=== PATIENT | female | born 1930 | race Caucasian/White ===

== ENCOUNTER 2016-12-31 19:32 | Inpatient (IN) | payer MEDICARE, OTHER ==
[~2016-12-31] VITALS: Ht 157.5 cm; Wt 66.7 kg
[2016-12-31 20:00] VITALS: BP 140/69
[2016-12-31] MEDS ORDERED: EZET10TA13 PO (21:16)
[2016-12-31] MEDS ORDERED: IPRA0.2S6 NEB (21:16)
[2016-12-31] MEDS ORDERED: ESTR42.53 VG (21:16)
[2016-12-31] MEDS ORDERED: NITR0.4T48 SL (21:16)
[2016-12-31] MEDS ORDERED: VIT1CAPS7 PO (21:16)
[2016-12-31] MEDS ORDERED: ATEN50TA PO (21:16)
[2016-12-31] MEDS ORDERED: MIDO5TAB PO (21:16)
[2016-12-31] MEDS ORDERED: FEBU80TA PO (21:16)
[2016-12-31] MEDS ORDERED: GABA-534 PO (21:16)
[2016-12-31] MEDS ORDERED: ERGO500014 PO (21:16)
[2016-12-31] MEDS ORDERED: ATOR10TA PO (21:16)
[2016-12-31] MEDS ORDERED: ESOM40CA PO (21:16)
[2016-12-31] MEDS ORDERED: OXYC30TA2 PO (21:16)
[2016-12-31] MEDS ORDERED: HYDR-3026 PO (21:16)
[2016-12-31] MEDS ORDERED: LEVO200T9 PO (21:16)
[2016-12-31] MEDS ORDERED: ZALE10CA28 PO (21:16)
[2016-12-31] MEDS ORDERED: DOCU100T2 PO (21:16)
[2016-12-31] MEDS ORDERED: TRAZ-147 PO (21:16)
[2016-12-31] MEDS ORDERED: AMLO5TAB2 PO (21:16)
[2016-12-31] MEDS ORDERED: OXYC-133 PO (21:16)
[2016-12-31] MEDS ORDERED: AZEL137S7 NS (21:16)
[2016-12-31] MEDS ORDERED: CETI10TA14 PO (21:16)
[2016-12-31] MEDS ORDERED: TRIA1CAP6 PO (21:16)
[2016-12-31] MEDS ORDERED: IPRA0.2S48 IH ×2 (21:16)
[2016-12-31] MEDS ORDERED: SULF1TAB48 PO (21:16)
[2016-12-31] MEDS ORDERED: [UNRECOGNIZED DRUG - CODE] PO (21:16)
[2016-12-31] MEDS ORDERED: DIPH1TAB PO (21:16)
[2016-12-31] MEDS ORDERED: GUAI120018 PO (21:16)
[2016-12-31] MEDS ORDERED: ALBU2.5V38 IH (21:16)
[2016-12-31] MEDS ORDERED: IPRATROPIUM BROMIDE 0.5 MG/2.5 ML NEBU NEB PRN (22:00)
[2016-12-31] MEDS ORDERED: Medication Not On Formulary EA (Oxycodone Hcl 30 MG) PO SCH (22:00)
[2016-12-31] MEDS ORDERED: ERGOCALCIFEROL 50,000 UNIT CAPSULE PO SCH (22:00)
[2016-12-31] MEDS ORDERED: ALBUTEROL SULFATE 2.5 MG/3 ML NEBU NEB PRN (22:45)
[2016-12-31] MEDS ORDERED: GABAPENTIN 300 MG CAPSULE ONE (23:00)
[2016-12-31] MEDS: GABAPENTIN 300 MG CAPSULE PO SCH (23:07)
[2017-01-01] MEDS ORDERED: OXYCODONE/APAP 5-325 MG TABLET PO PRN (05:00)
[2017-01-01 07:29] LABS: BASOPHILS % (AUTO) 0.6 % (0.0-2.0); EOSINOPHILS # (AUTO) 0.4 K/uL (0.0-0.7); EOSINOPHILS % (AUTO) 6.3 % (0.0-7.0); HEMATOCRIT 34.1 % (37-47); HEMOGLOBIN 11.1 G/DL (12.0-16.0); LYMPHOCYTES # (AUTO) 1.4 K/UL (0.8-4.8); LYMPHOCYTES % (AUTO) 20.4 % (20.5-51.5); MEAN CORPUSCULAR HGB CONC 33 g/dL (32.0-37.0); MONOCYTES # (AUTO) 0.4 K/UL (0.1-1.30); MONOCYTES % (AUTO) 6.3 % (0.0-11.0); NEUTROPHILS # (AUTO) 4.8 K/UL (1.8-8.9); NEUTROPHILS % (AUTO) 66.4 % (38.5-71.5); PLATELET COUNT (AUTO) 724 K/UL (150-450); RED BLOOD CELL COUNT(AUTO) 4.43 MIL/UL (4.2-5.4)
[2017-01-01] MEDS ORDERED: ALBUTEROL SULFATE 2.5 MG/ 0.5 ML NEBU NEB PRN (08:00)
[2017-01-01 08:05] LABS: THYROID STIMULATING HORMONE 0.151 mIU/mL (0.358-3.740)
[2017-01-01 08:24] LABS: ALKALINE PHOSPHATASE 72 U/L (50-136); ASPARTATE AMINOTRANSFERASE 18 U/L (15-37); BILIRUBIN,TOTAL 0.2 mg/dL (0.2-1.0); CARBON DIOXIDE 33 mmol/L (21-32); CHLORIDE 106 mmol/L (98-107); CHOLESTEROL 129 mg/dL (<200); CREATININE 0.9 mg/dL (0.6-1.3); GLUCOSE 95 mg/dL (74-106); HDL CHOLESTEROL 44 mg/dL (40-60); MAGNESIUM 1.7 mg/dL (1.8-2.4); PHOSPHOROUS 3.3 mg/dL (2.5-4.9); POTASSIUM 3.5 mmol/L (3.5-5.1); TOTAL PROTEIN, SERUM 6.9 g/dL (6.4-8.2); TRIGLYCERIDES 153 MG/DL (30-150); UREA NITROGEN, BLOOD 11 mg/dL (7-18)
[2017-01-01 08:59] LABS: ALANINE AMINOTRANSFERASE 14 U/L (14-59)
[2017-01-01] MEDS ORDERED: OXYCODONE HCL 10 MG TAB.SR.12H PO SCH (09:00)
[2017-01-01] MEDS ORDERED: VIT E PO SCH (09:00)
[2017-01-01] MEDS ORDERED: Medication Not On Formulary EA (Docusate Sodium 100 MG) PO SCH (09:00)
[2017-01-01] MEDS ORDERED: LUTEIN PO SCH (09:00)
[2017-01-01] MEDS ORDERED: [UNRECOGNIZED DRUG - OTHER] PO SCH (09:00)
[2017-01-01] MEDS ORDERED: OMEGA PO SCH (09:00)
[2017-01-01] MEDS ORDERED: SULFAMETH/TRIMETH 800/160 MG TABLET PO SCH (09:00)
[2017-01-01] MEDS ORDERED: VIT C PO SCH (09:00)
[2017-01-01] MEDS: BETA CAROTENE/VIT C & E/MIN TABLET PO SCH ×2 (09:01→17:40)
[2017-01-01] MEDS: LEVOTHYROXINE SODIUM 200 MCG TABLET PO SCH (09:01)
[2017-01-01] MEDS: GABAPENTIN 300 MG CAPSULE PO SCH ×3 (09:02→17:38)
[2017-01-01] MEDS: DOCUSATE SODIUM 100 MG CAPSULE PO SCH (09:02)
[2017-01-01] MEDS: DOXYCYCLINE HYCLATE 100 MG TABLET PO SCH ×2 (09:02→21:04)
[2017-01-01] MEDS: CETIRIZINE HCL 10 MG TABLET PO SCH (09:02)
[2017-01-01] MEDS: AMLODIPINE 5 MG TABLET PO SCH (09:06)
[2017-01-01] MEDS: ATENOLOL 50 MG TABLET PO SCH (09:06)
[2017-01-01 09:30] VITALS: BP 160/73
[2017-01-01] MEDS ORDERED: MAGNESIUM OXIDE 400 MG TABLET PO ONE (12:00)
[2017-01-01] MEDS: HYDROMORPHONE HCL 2 MG TABLET PO PRN (17:39)
[2017-01-01] MEDS: TRAZODONE 100 MG TABLET PO SCH (21:04)
[2017-01-01] MEDS: MUPIROCIN 2% OINT 22 GM TUBE TP SCH (21:04)
[2017-01-01] MEDS: SONATA 10 MG PO SCH (21:04)
[2017-01-01] MEDS: EZETIMIBE 10 MG TABLET PO SCH (21:05)
[2017-01-01] MEDS: OXYCODONE HCL 10 MG TAB.SR.12H PO SCH (21:05)
[2017-01-01] MEDS: ATORVASTATIN 10 MG TABLET PO SCH (21:05)
[2017-01-01 22:00] VITALS: BP 117/72
[2017-01-02] MEDS: HYDROMORPHONE HCL 2 MG TABLET PO PRN ×2 (03:43→11:40)
[2017-01-02] MEDS ORDERED: DIPHENOXYLATE HCL/ATROP SULF TABLET PO PRN (06:45)
[2017-01-02] MEDS: LEVOTHYROXINE SODIUM 200 MCG TABLET PO SCH (06:46)
[2017-01-02] MEDS: OXYCODONE HCL 10 MG TAB.SR.12H PO SCH ×3 (06:46→21:59)
[2017-01-02] MEDS ORDERED: DIPHENOXYLATE HCL/ATROP SULF TABLET ONE (06:52)
[2017-01-02 07:50] VITALS: BP 154/70
[2017-01-02] MEDS: AMLODIPINE 5 MG TABLET PO SCH (08:49)
[2017-01-02] MEDS: GABAPENTIN 300 MG CAPSULE PO SCH ×3 (08:49→17:06)
[2017-01-02] MEDS: CETIRIZINE HCL 10 MG TABLET PO SCH (08:49)
[2017-01-02] MEDS: DOXYCYCLINE HYCLATE 100 MG TABLET PO SCH ×2 (08:49→22:00)
[2017-01-02] MEDS: BETA CAROTENE/VIT C & E/MIN TABLET PO SCH ×2 (08:50→17:06)
[2017-01-02] MEDS: DOCUSATE SODIUM 100 MG CAPSULE PO SCH (08:50)
[2017-01-02] MEDS: MUPIROCIN 2% OINT 22 GM TUBE TP SCH ×2 (08:50→21:59)
[2017-01-02] MEDS: ATENOLOL 50 MG TABLET PO SCH (08:50)
[2017-01-02 20:21] VITALS: BP 158/69
[2017-01-02] MEDS: SONATA 10 MG PO SCH (21:00)
[2017-01-02] MEDS: EZETIMIBE 10 MG TABLET PO SCH (21:59)
[2017-01-02] MEDS: ATORVASTATIN 10 MG TABLET PO SCH (21:59)
[2017-01-02] MEDS: TRAZODONE 100 MG TABLET PO SCH (22:00)
[2017-01-03] MEDS: LEVOTHYROXINE SODIUM 200 MCG TABLET PO SCH (06:03)
[2017-01-03] MEDS: OXYCODONE HCL 10 MG TAB.SR.12H PO SCH ×3 (06:03→21:46)
[2017-01-03 08:24] VITALS: BP 150/58
[2017-01-03] MEDS: CETIRIZINE HCL 10 MG TABLET PO SCH (09:10)
[2017-01-03] MEDS: DOXYCYCLINE HYCLATE 100 MG TABLET PO SCH ×3 (09:10→21:44)
[2017-01-03] MEDS: BETA CAROTENE/VIT C & E/MIN TABLET PO SCH ×2 (09:10→17:27)
[2017-01-03] MEDS: ATENOLOL 50 MG TABLET PO SCH (09:11)
[2017-01-03] MEDS: DOCUSATE SODIUM 100 MG CAPSULE PO SCH (09:12)
[2017-01-03] MEDS: AMLODIPINE 5 MG TABLET PO SCH ×2 (09:12→21:45)
[2017-01-03] MEDS: GABAPENTIN 300 MG CAPSULE PO SCH ×3 (09:12→17:27)
[2017-01-03] MEDS: MUPIROCIN 2% OINT 22 GM TUBE TP SCH ×2 (09:17→21:47)
[2017-01-03 21:05] VITALS: BP 134/58
[2017-01-03 21:22] VITALS: BP 120/72
[2017-01-03] MEDS: TRAZODONE 100 MG TABLET PO SCH (21:44)
[2017-01-03] MEDS: ATORVASTATIN 10 MG TABLET PO SCH (21:44)
[2017-01-03] MEDS: EZETIMIBE 10 MG TABLET PO SCH (21:44)
[2017-01-03] MEDS: SONATA 10 MG PO SCH (21:47)
[2017-01-04] MEDS: OXYCODONE HCL 10 MG TAB.SR.12H PO SCH ×3 (06:24→22:27)
[2017-01-04] MEDS: LEVOTHYROXINE SODIUM 175 MCG TABLET PO SCH (06:24)
[2017-01-04] MEDS: DIPHENOXYLATE HCL/ATROP SULF TABLET PO PRN (06:34)
[2017-01-04] MEDS ORDERED: LEVOTHYROXINE SODIUM 200 MCG TABLET PO SCH (07:00)
[2017-01-04 07:48] VITALS: BP 126/52
[2017-01-04 07:55] LABS: BASOPHILS # (AUTO) 0.1 K/uL (0.0-8.0); EOSINOPHILS # (AUTO) 0.4 K/uL (0.0-0.7); EOSINOPHILS % (AUTO) 5.8 % (0.0-7.0); HEMATOCRIT 29.7 % (37-47); HEMOGLOBIN 9.8 G/DL (12.0-16.0); LYMPHOCYTES # (AUTO) 2.2 K/UL (0.8-4.8); LYMPHOCYTES % (AUTO) 31.4 % (20.5-51.5); MEAN CORPUSCULAR HEMOGLOBIN 25.2 UUG (27.0-31.0); MEAN CORPUSCULAR HGB CONC 33 g/dL (32.0-37.0); MEAN CORPUSCULAR VOLUME 76.7 FL (81.0-99.0); MONOCYTES # (AUTO) 0.8 K/UL (0.1-1.30); MONOCYTES % (AUTO) 11.1 % (0.0-11.0); NEUTROPHILS # (AUTO) 3.6 K/UL (1.8-8.9); NEUTROPHILS % (AUTO) 50.7 % (38.5-71.5); PLATELET COUNT (AUTO) 554 K/UL (150-450); WHITE BLOOD COUNT (AUTO) 7.1 K/UL (4.0-11.2)
[2017-01-04 08:01] LABS: RED BLOOD CELL COUNT(AUTO) 3.87 MIL/UL (4.2-5.4)
[2017-01-04 08:44] LABS: ALANINE AMINOTRANSFERASE 18 U/L (14-59); ALKALINE PHOSPHATASE 113 U/L (50-136); ASPARTATE AMINOTRANSFERASE 23 U/L (15-37); BILIRUBIN,TOTAL 0.2 mg/dL (0.2-1.0); CARBON DIOXIDE 28 mmol/L (21-32); CHLORIDE 107 mmol/L (98-107); GLUCOSE 88 mg/dL (74-106); MAGNESIUM 1.7 mg/dL (1.8-2.4); PHOSPHOROUS 4.1 mg/dL (2.5-4.9); POTASSIUM 3.4 mmol/L (3.5-5.1); TOTAL PROTEIN, SERUM 5.9 g/dL (6.4-8.2); UREA NITROGEN, BLOOD 25 mg/dL (7-18)
[2017-01-04] MEDS: GABAPENTIN 300 MG CAPSULE PO SCH ×3 (09:00→17:44)
[2017-01-04] MEDS ORDERED: MAGNESIUM OXIDE 400 MG TABLET PO ONE (09:00)
[2017-01-04] MEDS: MUPIROCIN 2% OINT 22 GM TUBE TP SCH ×2 (09:00→20:33)
[2017-01-04] MEDS: ATENOLOL 50 MG TABLET PO SCH (09:00)
[2017-01-04] MEDS ORDERED: POTASSIUM CHLORIDE 20 MEQ TAB.PRT.SR PO ONE (09:00)
[2017-01-04] MEDS: DOCUSATE SODIUM 100 MG CAPSULE PO SCH (09:00)
[2017-01-04] MEDS: DOXYCYCLINE HYCLATE 100 MG TABLET PO SCH ×2 (11:12→20:31)
[2017-01-04] MEDS: BETA CAROTENE/VIT C & E/MIN TABLET PO SCH ×2 (11:12→17:44)
[2017-01-04] MEDS: HYDROMORPHONE HCL 2 MG TABLET PO PRN (11:12)
[2017-01-04] MEDS: AMLODIPINE 5 MG TABLET PO SCH ×2 (11:16→20:36)
[2017-01-04] MEDS: CETIRIZINE HCL 10 MG TABLET PO SCH (11:17)
[2017-01-04] MEDS ORDERED: DIPHENOXYLATE HCL/ATROP SULF TABLET PO PRN (15:45)
[2017-01-04 20:23] VITALS: BP 107/52
[2017-01-04 20:30] VITALS: BP 115/62
[2017-01-04] MEDS: SONATA 10 MG PO SCH (20:31)
[2017-01-04] MEDS: TRAZODONE 100 MG TABLET PO SCH (20:32)
[2017-01-04] MEDS: EZETIMIBE 10 MG TABLET PO SCH (20:32)
[2017-01-04] MEDS: ATORVASTATIN 10 MG TABLET PO SCH (20:32)
[2017-01-05] MEDS: LEVOTHYROXINE SODIUM 175 MCG TABLET PO SCH (06:04)
[2017-01-05] MEDS: OXYCODONE HCL 10 MG TAB.SR.12H PO SCH ×4 (06:04→22:30)
[2017-01-05 07:36] VITALS: BP 105/53
[2017-01-05 08:08] VITALS: BP 105/53
[2017-01-05] MEDS: AMLODIPINE 5 MG TABLET PO SCH ×2 (09:00→22:32)
[2017-01-05] MEDS: DOCUSATE SODIUM 100 MG CAPSULE PO SCH (09:00)
[2017-01-05] MEDS: MUPIROCIN 2% OINT 22 GM TUBE TP SCH ×2 (10:02→22:33)
[2017-01-05] MEDS: ERGOCALCIFEROL 50,000 UNIT CAPSULE PO SCH (10:02)
[2017-01-05] MEDS: BETA CAROTENE/VIT C & E/MIN TABLET PO SCH ×2 (10:03→17:00)
[2017-01-05] MEDS: GABAPENTIN 300 MG CAPSULE PO SCH ×3 (10:03→17:22)
[2017-01-05] MEDS: DOXYCYCLINE HYCLATE 100 MG TABLET PO SCH ×2 (10:03→22:30)
[2017-01-05] MEDS: CETIRIZINE HCL 10 MG TABLET PO SCH (10:04)
[2017-01-05] MEDS: ATENOLOL 50 MG TABLET PO SCH (10:04)
[2017-01-05] MEDS: OXYCODONE HCL 20 MG TAB.SR.12H PO SCH ×3 (14:00→22:33)
[2017-01-05 19:36] VITALS: BP 130/49
[2017-01-05] MEDS: TRAZODONE 100 MG TABLET PO SCH ×2 (21:45→22:30)
[2017-01-05] MEDS: ATORVASTATIN 10 MG TABLET PO SCH (22:32)
[2017-01-05] MEDS: EZETIMIBE 10 MG TABLET PO SCH (22:32)
[2017-01-05] MEDS: SONATA 10 MG PO SCH (22:34)
[2017-01-06] MEDS: OXYCODONE HCL 20 MG TAB.SR.12H PO SCH ×3 (06:35→21:01)
[2017-01-06] MEDS: LEVOTHYROXINE SODIUM 175 MCG TABLET PO SCH (06:35)
[2017-01-06] MEDS: OXYCODONE HCL 10 MG TAB.SR.12H PO SCH ×3 (06:35→21:00)
[2017-01-06 08:00] VITALS: BP 100/67
[2017-01-06] MEDS: BETA CAROTENE/VIT C & E/MIN TABLET PO SCH ×2 (08:42→17:17)
[2017-01-06] MEDS: DOCUSATE SODIUM 100 MG CAPSULE PO SCH (08:46)
[2017-01-06] MEDS: CETIRIZINE HCL 10 MG TABLET PO SCH (08:46)
[2017-01-06] MEDS: AMLODIPINE 5 MG TABLET PO SCH ×2 (08:51→20:55)
[2017-01-06] MEDS: ATENOLOL 50 MG TABLET PO SCH (08:52)
[2017-01-06] MEDS: MUPIROCIN 2% OINT 22 GM TUBE TP SCH ×3 (09:00→21:00)
[2017-01-06] MEDS: GABAPENTIN 300 MG CAPSULE PO SCH ×3 (09:28→17:17)
[2017-01-06] MEDS: HYDROMORPHONE HCL 2 MG TABLET PO PRN (19:05)
[2017-01-06 20:00] VITALS: BP 139/63
[2017-01-06] MEDS: ATORVASTATIN 10 MG TABLET PO SCH (20:54)
[2017-01-06] MEDS: EZETIMIBE 10 MG TABLET PO SCH (20:54)
[2017-01-06] MEDS: TRAZODONE 100 MG TABLET PO SCH (20:55)
[2017-01-06] MEDS: SONATA 10 MG PO SCH (21:00)
[2017-01-06] MEDS ORDERED: LINEZOLID 600 MG TABLET ONE (23:02)
[2017-01-06] MEDS: LINEZOLID 600 MG TABLET PO SCH (23:16)
[2017-01-07] MEDS: LEVOTHYROXINE SODIUM 175 MCG TABLET PO SCH (06:12)
[2017-01-07] MEDS: OXYCODONE HCL 10 MG TAB.SR.12H PO SCH ×3 (06:12→21:52)
[2017-01-07] MEDS: OXYCODONE HCL 20 MG TAB.SR.12H PO SCH ×3 (06:13→21:53)
[2017-01-07 07:35] LABS: BASOPHILS % (AUTO) 0.5 % (0.0-2.0); EOSINOPHILS # (AUTO) 0.3 K/uL (0.0-0.7); HEMATOCRIT 33.1 % (37-47); HEMOGLOBIN 10.9 G/DL (12.0-16.0); LYMPHOCYTES % (AUTO) 26.3 % (20.5-51.5); MEAN CORPUSCULAR HEMOGLOBIN 25.5 UUG (27.0-31.0); MEAN CORPUSCULAR HGB CONC 33 g/dL (32.0-37.0); MEAN CORPUSCULAR VOLUME 77.7 FL (81.0-99.0); MONOCYTES # (AUTO) 0.9 K/UL (0.1-1.30); MONOCYTES % (AUTO) 11.7 % (0.0-11.0); NEUTROPHILS # (AUTO) 4.4 K/UL (1.8-8.9); NEUTROPHILS % (AUTO) 57.5 % (38.5-71.5); PLATELET COUNT (AUTO) 521 K/UL (150-450); RED BLOOD CELL COUNT(AUTO) 4.27 MIL/UL (4.2-5.4); WHITE BLOOD COUNT (AUTO) 7.6 K/UL (4.0-11.2)
[2017-01-07 08:00] VITALS: BP 119/43
[2017-01-07 08:00] LABS: ALANINE AMINOTRANSFERASE 16 U/L (14-59); ALKALINE PHOSPHATASE 112 U/L (50-136); ASPARTATE AMINOTRANSFERASE 17 U/L (15-37); BILIRUBIN,TOTAL 0.2 mg/dL (0.2-1.0); CARBON DIOXIDE 27 mmol/L (21-32); CHLORIDE 108 mmol/L (98-107); CREATININE 0.9 mg/dL (0.6-1.3); GLUCOSE 105 mg/dL (74-106); MAGNESIUM 1.7 mg/dL (1.8-2.4); PHOSPHOROUS 4.1 mg/dL (2.5-4.9); POTASSIUM 3.8 mmol/L (3.5-5.1); TOTAL PROTEIN, SERUM 6.7 g/dL (6.4-8.2); UREA NITROGEN, BLOOD 18 mg/dL (7-18)
[2017-01-07] MEDS: DOCUSATE SODIUM 100 MG CAPSULE PO SCH (09:00)
[2017-01-07] MEDS: GABAPENTIN 300 MG CAPSULE PO SCH ×3 (09:28→17:11)
[2017-01-07] MEDS: BETA CAROTENE/VIT C & E/MIN TABLET PO SCH ×2 (09:28→17:11)
[2017-01-07] MEDS: AMLODIPINE 5 MG TABLET PO SCH ×2 (09:29→21:55)
[2017-01-07] MEDS: CETIRIZINE HCL 10 MG TABLET PO SCH (09:29)
[2017-01-07] MEDS: ATENOLOL 50 MG TABLET PO SCH (09:29)
[2017-01-07] MEDS: MUPIROCIN 2% OINT 22 GM TUBE TP SCH ×2 (09:30→21:53)
[2017-01-07] MEDS: LINEZOLID 600 MG TABLET PO SCH ×2 (10:05→21:51)
[2017-01-07] MEDS: HYDROMORPHONE HCL 2 MG TABLET PO PRN (10:05)
[2017-01-07] MEDS: DIPHENOXYLATE HCL/ATROP SULF TABLET PO PRN (10:06)
[2017-01-07] MEDS ORDERED: MAGNESIUM OXIDE 400 MG TABLET PO ONE (14:45)
[2017-01-07] MEDS ORDERED: Z GUARD REMEDY PASTE 57 GM TUBE TOP PRN (18:45)
[2017-01-07 20:14] VITALS: BP 131/53
[2017-01-07] MEDS: TRAZODONE 100 MG TABLET PO SCH (21:51)
[2017-01-07] MEDS: ATORVASTATIN 10 MG TABLET PO SCH (21:51)
[2017-01-07] MEDS: EZETIMIBE 10 MG TABLET PO SCH (21:52)
[2017-01-07] MEDS: SONATA 10 MG PO SCH (22:02)
[2017-01-08] MEDS: LEVOTHYROXINE SODIUM 175 MCG TABLET PO SCH (06:42)
[2017-01-08] MEDS: OXYCODONE HCL 20 MG TAB.SR.12H PO SCH ×3 (06:43→21:09)
[2017-01-08] MEDS: OXYCODONE HCL 10 MG TAB.SR.12H PO SCH ×3 (06:43→21:08)
[2017-01-08] MEDS: MUPIROCIN 2% OINT 22 GM TUBE TP SCH ×2 (09:11→21:09)
[2017-01-08] MEDS: GABAPENTIN 300 MG CAPSULE PO SCH ×3 (09:12→16:29)
[2017-01-08] MEDS: DOCUSATE SODIUM 100 MG CAPSULE PO SCH (09:12)
[2017-01-08] MEDS: CETIRIZINE HCL 10 MG TABLET PO SCH (09:12)
[2017-01-08] MEDS: LINEZOLID 600 MG TABLET PO SCH ×2 (09:13→21:06)
[2017-01-08] MEDS: ATENOLOL 50 MG TABLET PO SCH (09:13)
[2017-01-08] MEDS: BETA CAROTENE/VIT C & E/MIN TABLET PO SCH ×2 (09:13→16:28)
[2017-01-08] MEDS: AMLODIPINE 5 MG TABLET PO SCH ×2 (09:13→21:08)
[2017-01-08 10:06] VITALS: BP 119/60
[2017-01-08] MEDS: GUAIFENESIN/DEXTROMETHORPHAN 5 ML UDC PO PRN ×2 (11:34→21:17)
[2017-01-08] MEDS: BUDESONIDE 0.5 MG/2 ML NEBU NEB SCH ×2 (14:47→19:15)
[2017-01-08 19:58] VITALS: BP 131/60
[2017-01-08] MEDS: SONATA 10 MG PO SCH (21:07)
[2017-01-08] MEDS: TRAZODONE 100 MG TABLET PO SCH (21:08)
[2017-01-08] MEDS: EZETIMIBE 10 MG TABLET PO SCH (21:08)
[2017-01-08] MEDS: ATORVASTATIN 10 MG TABLET PO SCH (21:08)
[2017-01-08] MEDS ORDERED: IPRATROPIUM BROMIDE 0.5 MG/2.5 ML NEBU NEB PRN (23:45)
[2017-01-09] MEDS: OXYCODONE HCL 20 MG TAB.SR.12H PO SCH ×3 (06:36→21:32)
[2017-01-09] MEDS: LEVOTHYROXINE SODIUM 175 MCG TABLET PO SCH (06:36)
[2017-01-09] MEDS: OXYCODONE HCL 10 MG TAB.SR.12H PO SCH ×3 (06:37→21:31)
[2017-01-09] MEDS: BUDESONIDE 0.5 MG/2 ML NEBU NEB SCH ×2 (07:22→18:50)
[2017-01-09] MEDS: ALBUTEROL SULFATE 1.25 MG/3 ML NEBU NEB PRN ×2 (07:22→22:49)
[2017-01-09] MEDS: ACETYLCYSTEINE 10% 4ML VIAL NEB SCH ×3 (07:23→22:49)
[2017-01-09 08:01] LABS: BASOPHILS # (AUTO) 0.1 K/uL (0.0-8.0); BASOPHILS % (AUTO) 1.2 % (0.0-2.0); EOSINOPHILS # (AUTO) 0.2 K/uL (0.0-0.7); EOSINOPHILS % (AUTO) 3.9 % (0.0-7.0); HEMATOCRIT 30.5 % (37-47); HEMOGLOBIN 9.9 G/DL (12.0-16.0); LYMPHOCYTES # (AUTO) 1.9 K/UL (0.8-4.8); LYMPHOCYTES % (AUTO) 30.5 % (20.5-51.5); MEAN CORPUSCULAR HEMOGLOBIN 25.1 UUG (27.0-31.0); MEAN CORPUSCULAR HGB CONC 32 g/dL (32.0-37.0); MEAN CORPUSCULAR VOLUME 77.5 FL (81.0-99.0); MONOCYTES # (AUTO) 0.8 K/UL (0.1-1.30); MONOCYTES % (AUTO) 12.5 % (0.0-11.0); NEUTROPHILS # (AUTO) 3.1 K/UL (1.8-8.9); NEUTROPHILS % (AUTO) 51.9 % (38.5-71.5); PLATELET COUNT (AUTO) 432 K/UL (150-450); RED BLOOD CELL COUNT(AUTO) 3.94 MIL/UL (4.2-5.4); WHITE BLOOD COUNT (AUTO) 6.1 K/UL (4.0-11.2)
[2017-01-09 08:08] VITALS: BP 114/55
[2017-01-09 08:46] LABS: CARBON DIOXIDE 26 mmol/L (21-32); CHLORIDE 107 mmol/L (98-107); GLUCOSE 90 mg/dL (74-106); PHOSPHOROUS 4.3 mg/dL (2.5-4.9); POTASSIUM 3.9 mmol/L (3.5-5.1); UREA NITROGEN, BLOOD 21 mg/dL (7-18)
[2017-01-09] MEDS: BETA CAROTENE/VIT C & E/MIN TABLET PO SCH ×2 (10:09→16:51)
[2017-01-09] MEDS: DOCUSATE SODIUM 100 MG CAPSULE PO SCH (10:09)
[2017-01-09] MEDS: LINEZOLID 600 MG TABLET PO SCH (10:10)
[2017-01-09] MEDS: ATENOLOL 50 MG TABLET PO SCH (10:10)
[2017-01-09] MEDS: CETIRIZINE HCL 10 MG TABLET PO SCH (10:10)
[2017-01-09] MEDS: GABAPENTIN 300 MG CAPSULE PO SCH ×3 (10:11→16:51)
[2017-01-09] MEDS: MUPIROCIN 2% OINT 22 GM TUBE TP SCH (10:11)
[2017-01-09] MEDS: AMLODIPINE 5 MG TABLET PO SCH ×2 (10:13→21:29)
[2017-01-09 21:04] VITALS: BP 133/58
[2017-01-09] MEDS: SONATA 10 MG PO SCH (21:28)
[2017-01-09] MEDS: EZETIMIBE 10 MG TABLET PO SCH (21:29)
[2017-01-09] MEDS: TRAZODONE 100 MG TABLET PO SCH (21:29)
[2017-01-09] MEDS: ATORVASTATIN 10 MG TABLET PO SCH (21:29)
[2017-01-10] MEDS: LEVOTHYROXINE SODIUM 175 MCG TABLET PO SCH ×2 (06:47→09:44)
[2017-01-10] MEDS: OXYCODONE HCL 10 MG TAB.SR.12H PO SCH ×3 (06:48→21:18)
[2017-01-10] MEDS: OXYCODONE HCL 20 MG TAB.SR.12H PO SCH ×3 (06:49→21:17)
[2017-01-10] MEDS: ACETYLCYSTEINE 10% 4ML VIAL NEB SCH ×3 (07:10→23:30)
[2017-01-10] MEDS: ALBUTEROL SULFATE 1.25 MG/3 ML NEBU NEB PRN (07:10)
[2017-01-10] MEDS: BUDESONIDE 0.5 MG/2 ML NEBU NEB SCH ×2 (07:23→19:20)
[2017-01-10] MEDS: AMLODIPINE 5 MG TABLET PO SCH ×2 (09:00→21:17)
[2017-01-10] MEDS: ATENOLOL 50 MG TABLET PO SCH (09:00)
[2017-01-10 09:30] VITALS: BP 105/52
[2017-01-10] MEDS: BETA CAROTENE/VIT C & E/MIN TABLET PO SCH ×2 (09:44→18:04)
[2017-01-10] MEDS: DOCUSATE SODIUM 100 MG CAPSULE PO SCH (09:44)
[2017-01-10] MEDS: CETIRIZINE HCL 10 MG TABLET PO SCH (09:44)
[2017-01-10] MEDS: GABAPENTIN 300 MG CAPSULE PO SCH ×3 (09:44→18:04)
[2017-01-10] MEDS: HYDROMORPHONE HCL 2 MG TABLET PO PRN (09:57)
[2017-01-10 20:18] VITALS: BP 114/50
[2017-01-10] MEDS: EZETIMIBE 10 MG TABLET PO SCH (21:16)
[2017-01-10] MEDS: ATORVASTATIN 10 MG TABLET PO SCH (21:16)
[2017-01-10] MEDS: TRAZODONE 100 MG TABLET PO SCH (21:18)
[2017-01-10] MEDS: SONATA 10 MG PO SCH (21:20)
[2017-01-11] MEDS: OXYCODONE HCL 20 MG TAB.SR.12H PO SCH ×3 (06:12→21:46)
[2017-01-11] MEDS: OXYCODONE HCL 10 MG TAB.SR.12H PO SCH ×3 (06:13→21:46)
[2017-01-11] MEDS: BUDESONIDE 0.5 MG/2 ML NEBU NEB SCH ×2 (07:30→19:49)
[2017-01-11] MEDS: ACETYLCYSTEINE 10% 4ML VIAL NEB SCH ×3 (07:39→19:50)
[2017-01-11] MEDS: ALBUTEROL SULFATE 1.25 MG/3 ML NEBU NEB PRN ×2 (07:39→16:06)
[2017-01-11 07:57] LABS: BASOPHILS # (AUTO) 0.1 K/uL (0.0-8.0); BASOPHILS % (AUTO) 1.7 % (0.0-2.0); EOSINOPHILS # (AUTO) 0.2 K/uL (0.0-0.7); EOSINOPHILS % (AUTO) 2.4 % (0.0-7.0); HEMATOCRIT 31.3 % (37-47); LYMPHOCYTES % (AUTO) 26.1 % (20.5-51.5); MEAN CORPUSCULAR HEMOGLOBIN 24.8 UUG (27.0-31.0); MEAN CORPUSCULAR HGB CONC 32 g/dL (32.0-37.0); MEAN CORPUSCULAR VOLUME 77.6 FL (81.0-99.0); MONOCYTES # (AUTO) 0.8 K/UL (0.1-1.30); MONOCYTES % (AUTO) 10.6 % (0.0-11.0); NEUTROPHILS # (AUTO) 4.7 K/UL (1.8-8.9); NEUTROPHILS % (AUTO) 59.2 % (38.5-71.5); PLATELET COUNT (AUTO) 444 K/UL (150-450); RED BLOOD CELL COUNT(AUTO) 4.03 MIL/UL (4.2-5.4)
[2017-01-11 07:59] LABS: CARBON DIOXIDE 26 mmol/L (21-32); CHLORIDE 107 mmol/L (98-107); CREATININE 1.1 mg/dL (0.6-1.3); GLUCOSE 93 mg/dL (74-106); PHOSPHOROUS 3.7 mg/dL (2.5-4.9); POTASSIUM 3.9 mmol/L (3.5-5.1); UREA NITROGEN, BLOOD 15 mg/dL (7-18)
[2017-01-11 08:00] VITALS: BP 102/42
[2017-01-11] MEDS: BETA CAROTENE/VIT C & E/MIN TABLET PO SCH ×2 (08:04→17:39)
[2017-01-11 08:05] LABS: WHITE BLOOD COUNT (AUTO) 7.8 K/UL (4.0-11.2)
[2017-01-11] MEDS: CETIRIZINE HCL 10 MG TABLET PO SCH (08:05)
[2017-01-11] MEDS: DOCUSATE SODIUM 100 MG CAPSULE PO SCH (08:05)
[2017-01-11] MEDS: GABAPENTIN 300 MG CAPSULE PO SCH ×3 (08:05→17:39)
[2017-01-11] MEDS: AMLODIPINE 5 MG TABLET PO SCH ×2 (08:13→20:45)
[2017-01-11] MEDS: GUAIFENESIN/DEXTROMETHORPHAN 5 ML UDC PO PRN ×3 (08:15→20:03)
[2017-01-11] MEDS: HYDROMORPHONE HCL 2 MG TABLET PO PRN (09:26)
[2017-01-11] MEDS: ATENOLOL 50 MG TABLET PO SCH (10:18)
[2017-01-11] MEDS ORDERED: HYDROCORTISONE 1% CREAM 30 GM TUBE TP PRN (17:00)
[2017-01-11 20:00] VITALS: BP 150/60
[2017-01-11] MEDS: TRAZODONE 100 MG TABLET PO SCH (20:45)
[2017-01-11] MEDS: EZETIMIBE 10 MG TABLET PO SCH (20:46)
[2017-01-11] MEDS: ATORVASTATIN 10 MG TABLET PO SCH (20:46)
[2017-01-11] MEDS: SONATA 10 MG PO SCH (20:50)
[2017-01-12] MEDS: LEVOTHYROXINE SODIUM 175 MCG TABLET PO SCH (06:15)
[2017-01-12] MEDS: OXYCODONE HCL 10 MG TAB.SR.12H PO SCH ×3 (06:16→21:22)
[2017-01-12] MEDS: OXYCODONE HCL 20 MG TAB.SR.12H PO SCH ×3 (06:18→21:22)
[2017-01-12] MEDS: BUDESONIDE 0.5 MG/2 ML NEBU NEB SCH ×2 (07:30→19:53)
[2017-01-12] MEDS: ACETYLCYSTEINE 10% 4ML VIAL NEB SCH ×3 (07:35→19:52)
[2017-01-12 08:00] VITALS: BP 120/50
[2017-01-12] MEDS: GABAPENTIN 300 MG CAPSULE PO SCH ×3 (09:19→16:51)
[2017-01-12] MEDS: AMLODIPINE 5 MG TABLET PO SCH ×2 (09:20→21:35)
[2017-01-12] MEDS: BETA CAROTENE/VIT C & E/MIN TABLET PO SCH ×2 (09:20→16:51)
[2017-01-12] MEDS: ERGOCALCIFEROL 50,000 UNIT CAPSULE PO SCH (09:21)
[2017-01-12] MEDS: CETIRIZINE HCL 10 MG TABLET PO SCH (09:21)
[2017-01-12] MEDS: ATENOLOL 50 MG TABLET PO SCH (09:21)
[2017-01-12] MEDS: DOCUSATE SODIUM 100 MG CAPSULE PO SCH (09:21)
[2017-01-12 14:04] LABS: CARBON DIOXIDE 28 mmol/L (21-32); CHLORIDE 103 mmol/L (98-107); CREATININE 0.9 mg/dL (0.6-1.3); GLUCOSE 115 mg/dL (74-106); POTASSIUM 3.9 mmol/L (3.5-5.1); UREA NITROGEN, BLOOD 17 mg/dL (7-18)
[2017-01-12 14:19] LABS: BASOPHILS # (AUTO) 0.1 K/uL (0.0-8.0); BASOPHILS % (AUTO) 0.6 % (0.0-2.0); EOSINOPHILS # (AUTO) 0.2 K/uL (0.0-0.7); EOSINOPHILS % (AUTO) 1.6 % (0.0-7.0); HEMOGLOBIN 10.1 G/DL (12.0-16.0); LYMPHOCYTES # (AUTO) 1.6 K/UL (0.8-4.8); LYMPHOCYTES % (AUTO) 14.5 % (20.5-51.5); MEAN CORPUSCULAR HEMOGLOBIN 24.8 UUG (27.0-31.0); MEAN CORPUSCULAR HGB CONC 32 g/dL (32.0-37.0); MEAN CORPUSCULAR VOLUME 76.5 FL (81.0-99.0); MONOCYTES # (AUTO) 0.6 K/UL (0.1-1.30); NEUTROPHILS # (AUTO) 8.6 K/UL (1.8-8.9); NEUTROPHILS % (AUTO) 78.3 % (38.5-71.5); PLATELET COUNT (AUTO) 427 K/UL (150-450); RED BLOOD CELL COUNT(AUTO) 4.06 MIL/UL (4.2-5.4)
[2017-01-12 14:22] LABS: WHITE BLOOD COUNT (AUTO) 11.1 K/UL (4.0-11.2)
[2017-01-12] MEDS: ALBUTEROL SULFATE 1.25 MG/3 ML NEBU NEB PRN (15:13)
[2017-01-12 20:00] VITALS: BP 102/44
[2017-01-12] MEDS: TRAZODONE 100 MG TABLET PO SCH (21:21)
[2017-01-12] MEDS: ATORVASTATIN 10 MG TABLET PO SCH (21:21)
[2017-01-12] MEDS: EZETIMIBE 10 MG TABLET PO SCH (21:21)
[2017-01-12] MEDS: SONATA 10 MG PO SCH (21:40)
[2017-01-12 21:45] VITALS: BP 116/51
[2017-01-13 06:20] VITALS: BP 121/56
[2017-01-13] MEDS: LEVOTHYROXINE SODIUM 175 MCG TABLET PO SCH (06:32)
[2017-01-13] MEDS: OXYCODONE HCL 20 MG TAB.SR.12H PO SCH ×2 (06:33→13:18)
[2017-01-13] MEDS: OXYCODONE HCL 10 MG TAB.SR.12H PO SCH ×2 (06:33→13:18)
[2017-01-13] MEDS: ACETYLCYSTEINE 10% 4ML VIAL NEB SCH ×2 (07:20→15:30)
[2017-01-13] MEDS: ALBUTEROL SULFATE 1.25 MG/3 ML NEBU NEB PRN (07:20)
[2017-01-13] MEDS: BUDESONIDE 0.5 MG/2 ML NEBU NEB SCH (07:20)
[2017-01-13] MEDS: DOCUSATE SODIUM 100 MG CAPSULE PO SCH (08:15)
[2017-01-13] MEDS: CETIRIZINE HCL 10 MG TABLET PO SCH (08:15)
[2017-01-13] MEDS: BETA CAROTENE/VIT C & E/MIN TABLET PO SCH ×2 (08:15→16:54)
[2017-01-13] MEDS: GABAPENTIN 300 MG CAPSULE PO SCH ×3 (08:15→16:53)
[2017-01-13 08:16] VITALS: BP 134/56
[2017-01-13] MEDS: AMLODIPINE 5 MG TABLET PO SCH (08:16)
[2017-01-13] MEDS: ATENOLOL 50 MG TABLET PO SCH (08:16)
== END 2017-01-13 18:20 | disposition home or self-care (01) | DRG 190 ==
PROVIDERS: ADMIT Physical Medicine & Rehabilitation Pain Medicine; ATTEND Physical Medicine & Rehabilitation Pain Medicine
DX: J44.0 Chronic obstructive pulmonary disease with (acute) lower respiratory infection (principal); J18.9 Pneumonia, unspecified organism; E43 Unspecified severe protein-calorie malnutrition; D68.59 Other primary thrombophilia; J45.901 Unspecified asthma with (acute) exacerbation; J90 Pleural effusion, not elsewhere classified; J98.11 Atelectasis; L03.115 Cellulitis of right lower limb; L03.114 Cellulitis of left upper limb; J44.1 Chronic obstructive pulmonary disease with (acute) exacerbation; I10 Essential (primary) hypertension; I25.10 Atherosclerotic heart disease of native coronary artery without angina pectoris; Z95.0 Presence of cardiac pacemaker; E03.9 Hypothyroidism, unspecified; K21.9 Gastro-esophageal reflux disease without esophagitis; G89.4 Chronic pain syndrome; D50.9 Iron deficiency anemia, unspecified; D69.6 Thrombocytopenia, unspecified; E05.90 Thyrotoxicosis, unspecified without thyrotoxic crisis or storm; E83.42 Hypomagnesemia; F32.9 Major depressive disorder, single episode, unspecified; G62.9 Polyneuropathy, unspecified; I27.2 Other secondary pulmonary hypertension; I34.0 Nonrheumatic mitral (valve) insufficiency; I70.0 Atherosclerosis of aorta; K44.9 Diaphragmatic hernia without obstruction or gangrene; M06.9 Rheumatoid arthritis, unspecified; M19.90 Unspecified osteoarthritis, unspecified site; M43.16 Spondylolisthesis, lumbar region; M48.06 Spinal stenosis, lumbar region; Z87.891 Personal history of nicotine dependence; E66.9 Obesity, unspecified; Z68.24 Body mass index [BMI] 24.0-24.9, adult; R19.7 Diarrhea, unspecified; R21 Rash and other nonspecific skin eruption; R26.9 Unspecified abnormalities of gait and mobility; Z90.49 Acquired absence of other specified parts of digestive tract; R19.5 Other fecal abnormalities; G89.29 Other chronic pain; Z88.1 Allergy status to other antibiotic agents; Z91.041 Radiographic dye allergy status; Z91.040 Latex allergy status; Z88.0 Allergy status to penicillin; Z88.2 Allergy status to sulfonamides; Z91.048 Other nonmedicinal substance allergy status; R53.81 Other malaise
CPT/HCPCS: 36415; 70030-TC; 71010; 82306; 83735; 84100; 84443; 85025; 86140; 92610; 94640; 97110; 97112; 97116; 97530; 97535; A4663; J3590

== ENCOUNTER 2017-05-15 17:30 | Inpatient (IN) | payer MEDICARE, OTHER ==
[~2017-05-15] VITALS: Ht 152.4 cm; Wt 62.1 kg
--- NOTE | 2017-05-15 17:20 | NUR ---
PATIENT ARRIVED ON UNIT VIA AMBULANCE AND GURNEY, 127/59, 86 PULSE, 97% ON 2 LITERS OF OXYGEN, 98.2 ORAL TEMPERATURE, DOCTOR JIN AND DOCTOR JAYDEN NOTIFIED OF PATIENT ARRIVAL ON UNIT, REDNESS NOTED ON PATIENTS FIRST AND SECOND LEFT TOES, BRUISES NOTED TO LEFT AND RIGHT SIDE OF ABDOMEN, G-TUBE NOTED (REDNESS NOTED AT G-TUBE SITE), PICTURES TAKEN AND PLACED IN CHART, ALERT AND ORIENT ED TO PERSON AND PLACE ONLY, NO COMPLAINTS OF PAIN AT THIS TIME, NO SIGNS OF DISTRESS NOTED, MRSA SWAB COMPLETED AND SENT TO LABORATORY, CALL LIGHT IN REACH, BED LOCKED AND IN LOWEST POSITION, AID AT BEDSIDE
[~2017-05-15 17:30] MED LIST: ALBU2.5V38 IH; AMLO5TAB2 PO; ATEN50TA PO; ATOR10TA PO; AZEL137S7 NS; CETI10TA14 PO; DIPH1TAB PO; DOCU100T2 PO; ERGO500014 PO; ESOM40CA PO; ESTR42.53 VG; EZET10TA13 PO; FEBU80TA PO; GABA-534 PO; GUAI120018 PO; HYDR-3026 PO; IPRA0.2S48 IH; IPRA0.2S6 NEB; LEVO200T9 PO; MIDO5TAB PO; NITR0.4T48 SL; OXYC-133 PO; SULF1TAB48 PO; TRAZ-147 PO; TRIA1CAP6 PO; VIT1CAPS7 PO; ZALE10CA28 PO; [UNRECOGNIZED DRUG - CODE] PO
[2017-05-15 18:08] VITALS: BP 127/59
[2017-05-15] MEDS ORDERED: Z GUARD REMEDY PASTE 57 GM TUBE TOP PRN (18:30)
[2017-05-15] MEDS ORDERED: MAGNESIUM HYDROXIDE 30 ML LIQUID UDC PO PRN (18:45)
[2017-05-15] MEDS ORDERED: FIBERSOURCE HN 1000ML LIQUID GT SCH (19:15)
--- NOTE | 2017-05-15 19:30 | NUR ---
Patient lying on bed with no s/s of distress. Call light within reach. Encouraged to call for help. Will continue to monitor.
[2017-05-15] MEDS ORDERED: MIDODRINE HCL 5 MG TABLET PO SCH (19:45)
[2017-05-15] MEDS ORDERED: NITROGLYCERIN 0.4 MG/TAB BOTTLE SL PRN (19:45)
[2017-05-15] MEDS: LOSARTAN POTASSIUM 50 MG TABLET PO SCH (21:00)
[2017-05-15] MEDS ORDERED: LOSARTAN POTASSIUM 50 MG TABLET ONE (21:34)
[2017-05-15] MEDS ORDERED: ATORVASTATIN 10 MG TABLET ONE (21:35)
[2017-05-15] MEDS ORDERED: TRAZODONE 100 MG TABLET ONE (21:35)
[2017-05-15] MEDS ORDERED: OXYCODONE HCL 10 MG TAB.SR.12H PO ONE (21:36)
[2017-05-15] MEDS ORDERED: EZETIMIBE 10 MG TABLET ONE (21:37)
[2017-05-15] MEDS: TRAZODONE 100 MG TABLET PO SCH (21:46)
[2017-05-15] MEDS: ATORVASTATIN 10 MG TABLET PO SCH (21:46)
[2017-05-15] MEDS: EZETIMIBE 10 MG TABLET PO SCH (21:46)
[2017-05-15] MEDS: OXYCODONE HCL 10 MG TAB.SR.12H PO SCH (21:49)
[2017-05-15 22:35] VITALS: BP 103/47
--- NOTE | 2017-05-16 06:48 | NUR ---
Patient awake, lying in bed. No distress noted. Slept intermittently. Due meds given. Needs attended. Comfort and safety measures in place. Snacks offered per patient's request. Most of admission data collected from caregiver. Patient gave little information. Difficulty recalling details. Call light kept within reach. Frequent checks done. Endorsed accordingly.
[2017-05-16 07:55] VITALS: BP 125/59
[2017-05-16] MEDS: OXYCODONE HCL 10 MG TAB.SR.12H PO SCH ×2 (08:53→21:00)
[2017-05-16] MEDS: LEVOTHYROXINE SODIUM 200 MCG TABLET PO SCH (08:53)
[2017-05-16] MEDS: AMLODIPINE 5 MG TABLET PO SCH (08:53)
[2017-05-16] MEDS: LOSARTAN POTASSIUM 50 MG TABLET PO SCH ×2 (08:54→21:00)
[2017-05-16] MEDS: ATENOLOL 50 MG TABLET PO SCH (08:54)
[2017-05-16] MEDS: GABAPENTIN 300 MG CAPSULE PO SCH ×3 (08:54→17:52)
[2017-05-16] MEDS: CETIRIZINE HCL 10 MG TABLET PO SCH (08:54)
[2017-05-16] MEDS: CLONIDINE-TTS 1 PATCH TD SCH (09:41)
[2017-05-16] MEDS ORDERED: ENOX40DI SQ (12:09)
[2017-05-16] MEDS ORDERED: MAG30ORA PO (12:09)
[2017-05-16] MEDS ORDERED: PANT40TA4 PO (12:09)
[2017-05-16] MEDS ORDERED: FLUT1BLS IH (12:09)
[2017-05-16] MEDS ORDERED: MAGN400O6 PO (12:09)
[2017-05-16] MEDS ORDERED: ACID1TAB4 GT (12:09)
[2017-05-16] MEDS ORDERED: LEVO500T2 PO (12:09)
[2017-05-16] MEDS ORDERED: ACET-2154 PO (12:09)
[2017-05-16] MEDS ORDERED: ENOX30DI5 SQ (12:10)
[2017-05-16] MEDS ORDERED: LEVO250T59 PO (12:10)
--- NOTE | 2017-05-16 20:00 | NUR ---
RECEIVED PATIENT IN BED, AWAKE, VERBALLY RESPONSIVE NO SOB NO CHEST PAIN NOTED, RESPIRATION EVEN AND UNLABORED, GT IN PLACE, TOLERATE GTF NO NAUSEA NO VOMITING NOTED, NO DIARRHEA, KEPT CLEAN AND DRY, CALL LIGHT WITHIN REACH.
[2017-05-16] MEDS: TRAZODONE 100 MG TABLET PO SCH (20:21)
[2017-05-16] MEDS: ATORVASTATIN 10 MG TABLET PO SCH (20:21)
[2017-05-16] MEDS: EZETIMIBE 10 MG TABLET PO SCH (20:21)
[2017-05-16 21:47] VITALS: BP 105/49
--- NOTE | 2017-05-16 22:11 | NUR ---
PATIENT TOO DROWSY PAIN MEDICATION OXYCONTIN HELD, PATIENT ASLEEP NO S/S OF PAIN AT THIS TIME. CONT TO MONITOR.
[2017-05-17] MEDS: LEVOTHYROXINE SODIUM 200 MCG TABLET PO SCH (06:01)
[2017-05-17] MEDS: OXYCODONE HCL 10 MG TAB.SR.12H PO SCH ×2 (09:00→21:00)
[2017-05-17 09:05] VITALS: BP 136/63
--- NOTE | 2017-05-17 09:06 | NUR ---
Called Dr. Adelso Moser and kris CODY for G- tube feeding frequency and G-tube water flush orders. Received new order from Dr. Darden for a Dietary consult to evaluate the G-tube feeding orders. Noted and carried out. Patient informed.
[2017-05-17] MEDS: ATENOLOL 50 MG TABLET PO SCH (09:22)
[2017-05-17] MEDS: CETIRIZINE HCL 10 MG TABLET PO SCH (09:22)
[2017-05-17] MEDS: LOSARTAN POTASSIUM 50 MG TABLET PO SCH ×2 (09:22→21:33)
[2017-05-17] MEDS: GABAPENTIN 300 MG CAPSULE PO SCH ×3 (09:23→17:06)
[2017-05-17] MEDS: AMLODIPINE 5 MG TABLET PO SCH (09:23)
--- NOTE | 2017-05-17 09:28 | NUR ---
Oxycontin held this morning patient lethargic and sleeping on/off.
--- NOTE | 2017-05-17 12:06 | NUR ---
patient verbalized c/of pain and at the time of administration sleeping and drowsy . Private sitter at bedside and medication held.
[2017-05-17 20:40] VITALS: BP 135/51
[2017-05-17] MEDS: TRAZODONE 100 MG TABLET PO SCH (21:33)
[2017-05-17] MEDS: EZETIMIBE 10 MG TABLET PO SCH (21:33)
[2017-05-17] MEDS: ATORVASTATIN 10 MG TABLET PO SCH (21:34)
[2017-05-18] MEDS: OXYCODONE HCL 10 MG TAB.SR.12H PO SCH ×3 (03:04→21:54)
[2017-05-18] MEDS: IPRATROPIUM BROMIDE 0.5 MG/2.5 ML NEBU NEB PRN (03:19)
[2017-05-18] MEDS: ALBUTEROL SULFATE 2.5 MG/3 ML NEBU IH PRN (03:19)
--- NOTE | 2017-05-18 03:20 | NUR ---
1900 Bedside change of shift report performed in patient room with caregiver/family present. patient difficult to arouse does not respond to name, sternal rub, or inflicted pain. Per endorsing RN and caregiver at bedside baseline LOC is lethargic and MD aware. 2100 oxycodone held per caregiver/family request and sedation. VSS BP135/51 P72 T98F R18. Patient is on 2LNC SpO2 98% LCAB. PEG at RLQ clamped. Fibersource initiated and running at 50ml/hour with no residual. Diaper in place for HS due to stool and urine incontinence. skin assessed frequently and kept clean dry and intact. bm x1 and urine x2 so far this shift. 0300 patient awake alert and oriented x3. coughing with expiratory/inspiratory wheezing. prn respiratory treatment given. patient c/o of generalized pain 8/10. request pain medication for relief. oxycodone 0900 dose administered early. patient reports medication efficacy and pain at this time is 3/10 with a comfort level 4/10. bed in low position. belongings and call light with in reach. instructed patient to use call light for help and before getting OOB. patient verbalized understanding. will continue with POC; round hourly; and endorse patient to oncoming RN when appropriate.
[2017-05-18] MEDS: LEVOTHYROXINE SODIUM 200 MCG TABLET PO SCH (06:35)
[2017-05-18 07:30] VITALS: BP 122/43
[2017-05-18] MEDS ORDERED: ERGOCALCIFEROL 50,000 UNIT CAPSULE PO SCH (09:00)
[2017-05-18] MEDS: CRANBERRY 500 MG PO SCH (10:14)
[2017-05-18] MEDS: CETIRIZINE HCL 10 MG TABLET PO SCH (10:15)
[2017-05-18] MEDS: GABAPENTIN 300 MG CAPSULE PO SCH ×3 (10:16→17:39)
[2017-05-18] MEDS: LOSARTAN POTASSIUM 50 MG TABLET PO SCH ×2 (10:16→21:53)
[2017-05-18] MEDS: AMLODIPINE 5 MG TABLET PO SCH (10:19)
[2017-05-18] MEDS: ATENOLOL 50 MG TABLET PO SCH (10:20)
--- NOTE | 2017-05-18 16:30 | NUR ---
0800 refuge worker present at shift change and patient eating breakfast. Tube feeding running at 50cc/hr. 1000 PEG checked for placement and residual and clamped. Residual greater then 100 cc. Pt. denies nausea or abdominal pain. Pt. worked with P.T. and O.T. during morning and afternoon and sitting up for most of the day reading paper and watching TV. PEG site noted be have redness with old bloody drainage and site cleaned and drain dressing applied. Pt. c/o of some pain at the site during intervention. Continue to monitor. Tube feeding with be clamped until new orders for tube feeding are obtained.
[2017-05-18 20:45] VITALS: BP 148/69
[2017-05-18] MEDS: ATORVASTATIN 10 MG TABLET PO SCH (21:53)
[2017-05-18] MEDS: TRAZODONE 100 MG TABLET PO SCH (21:54)
[2017-05-18] MEDS: EZETIMIBE 10 MG TABLET PO SCH (21:54)
[2017-05-19] MEDS: LEVOTHYROXINE SODIUM 200 MCG TABLET PO SCH (04:08)
[2017-05-19] MEDS: hydrOXYzine HCL 25 MG TABLET PO PRN (04:11)
--- NOTE | 2017-05-19 07:44 | NUR ---
PATIENT NOTED RESTING IN BED WITH EYES CLOSED, O2 NOTED AT 2 LITERS NASAL CANNULA, NO SHORTNESS OF BREATH, NO COMPLAINTS OF PAIN AT THIS TIME, NO SIGNS OF DISTRESS NOTED, CALL LIGHT IN REACH, BED LOCKED AND IN LOWEST POSITION, ALL NEEDS MET AT THIS TIME
[2017-05-19] MEDS: AMLODIPINE 5 MG TABLET PO SCH (09:00)
[2017-05-19] MEDS: ATENOLOL 50 MG TABLET PO SCH (09:00)
[2017-05-19] MEDS: LOSARTAN POTASSIUM 50 MG TABLET PO SCH ×2 (09:00→20:43)
[2017-05-19] MEDS: GABAPENTIN 300 MG CAPSULE PO SCH ×3 (09:38→17:38)
[2017-05-19] MEDS: CRANBERRY 500 MG PO SCH (09:38)
[2017-05-19] MEDS: OXYCODONE HCL 10 MG TAB.SR.12H PO SCH ×2 (09:40→20:27)
[2017-05-19] MEDS: CETIRIZINE HCL 10 MG TABLET PO SCH (09:40)
--- NOTE | 2017-05-19 14:40 | NUR ---
WOUND CARE CONSULT: PT SEEN FOR RT BUTTOCK DRY ABRASION. NO DRAINAGE NOTED. REDDISH AREA IS BLANCHABLE. RECOMMENDATIONS MADE FOR SKIN PROTECTION. PT'S CAREGIVER STATED THAT PT RUBBED BUTTOCK ON WHEELCHAIR PREVIOUSLY. PT IS INCONTINENT. SKIN TO BE KEPT CLEAN AND DRY. ALL RECOMMENDATIONS DISCUSSED WITH NURSING STAFF. PT ON FIRST STEP MATTRESS. WILL SEE PRN. CODY IN AGREEMENT WITH PLAN OF CARE. Addendum: 05/19/17 at 1443 by GENARO ROMAN RN Amended: Links added.
[2017-05-19 19:30] VITALS: BP 144/59
--- NOTE | 2017-05-19 19:55 | NUR ---
Patient was with caregiver upon rounds, patient on bed, with on going 2LP via NC O2. Vital signs are T 98.7 , P 78, R 20, Pulse sat 96%, BP 144/59. Pain level 9/10 on her abdomen. Informed the patient she has due pain meds. and will give it after rounds. Call light in reach.
[2017-05-19] MEDS: TRAZODONE 100 MG TABLET PO SCH ×2 (20:25→22:30)
[2017-05-19] MEDS: EZETIMIBE 10 MG TABLET PO SCH (20:25)
[2017-05-19] MEDS: ATORVASTATIN 10 MG TABLET PO SCH (20:25)
[2017-05-19] MEDS: OXYCODONE HCL 20 MG TAB.SR.12H PO SCH (20:28)
--- NOTE | 2017-05-20 06:15 | NUR ---
Pt. slept comfortably after Oxycontin 30mg PO given. Pt. denies of any pain. All due meds given. Pt. able to have BM early AM today. Per pt. " I don't like this tube, I don't feel comfortable with it." Also noted pt. coughing and she refused her breathing treatment because for her it will not help her at all. Informed her that I will endorse to AM shift nurse her concerns so the doctor will be informed. All needs attended to. Call light in reach.
[2017-05-20] MEDS: LEVOTHYROXINE SODIUM 200 MCG TABLET PO SCH (06:24)
[2017-05-20] MEDS: OXYCODONE HCL 20 MG TAB.SR.12H PO SCH ×2 (08:18→20:30)
[2017-05-20] MEDS: CRANBERRY 500 MG PO SCH (08:24)
[2017-05-20] MEDS: GABAPENTIN 300 MG CAPSULE PO SCH ×3 (08:25→16:24)
[2017-05-20] MEDS: CETIRIZINE HCL 10 MG TABLET PO SCH (08:25)
[2017-05-20 08:28] VITALS: BP 102/50
[2017-05-20] MEDS: AMLODIPINE 5 MG TABLET PO SCH (08:29)
[2017-05-20] MEDS: ATENOLOL 50 MG TABLET PO SCH (08:29)
[2017-05-20] MEDS: LOSARTAN POTASSIUM 50 MG TABLET PO SCH ×2 (08:30→20:28)
[2017-05-20] MEDS: OXYCODONE HCL 10 MG TAB.SR.12H PO SCH ×2 (09:00→20:30)
--- NOTE | 2017-05-20 10:29 | NUR ---
SBAR report received near bedside, board updated. Pt awake, alert, and oriented x4. Pt assessed, reported pain initially 8-9/10, Oxycotin 20 mg administered PO as ordered, the additional 10 mg Oxycotin remains unavailable, pharmacy notified. Pt reports tolerable pain level of 3-4/10 at this time. Pt compliant with all routine PO medication administration. No SOB, but cough present. All safety and comfort needs met. Today's plan of care discussed. Call light and personal items within reach. Will continue to monitor Pt.
--- NOTE | 2017-05-20 12:18 | NUR ---
Pt reassessed to have fallen asleep while sitting up in wheelchair, eating lunch. No signs of pain evident, personal care assistant at bedside. Will continue to monitor.
--- NOTE | 2017-05-20 18:18 | NUR ---
Pt sitting up comfortably in bed, with sitter at bedside. V/S taken 98.1 temp. 146/59, 82 pulse, 20 RR, and 97% O2 on 2 L NC. Pt denies any feelings of SOB and pain. Pt clean and dry and repositioned. Pt seen by MD, with no new orders except chest Xray for tomorrow. Pt has denied breathing tx throughout the shift. Plan of care discussed and Pt agrees to comply with the up coming nebulizer Tx. All safety and comfort measures met at this time. Call light and personal items within reach. Will continue to monitor.
[2017-05-20] MEDS: BUDESONIDE 0.5 MG/2 ML NEBU NEB SCH (19:06)
--- NOTE | 2017-05-20 19:50 | NUR ---
Received pt in bed, awake alert and oriented with caregiver at bedside. Pt is verbally responsive and able to make needs known. Complaining of pain at G-Tube site, but no noted redness at site. G-Tube patent and intact with no residuals. Pain is 4/10 uncomfortable pain at site. Repositioning done to make comfortable and decrease pain. Slightly effective, but pt still complaining of pain. On O2 2L NC with saturation of 96%. All safety measures and fall precautions maintained. Call light within reach. Will continue to monitor.
[2017-05-20] MEDS: ATORVASTATIN 10 MG TABLET PO SCH (20:28)
[2017-05-20] MEDS: EZETIMIBE 10 MG TABLET PO SCH (20:28)
--- NOTE | 2017-05-20 20:45 | NUR ---
Pt complaining of increased pain, 9/10 on pain scale at g-tube site. Medicated with scheduled pain medicine, OxyContin 30 mg. Well tolerated. Safety maintained. Will continue to monitor.
[2017-05-20 21:09] VITALS: BP 125/66
--- NOTE | 2017-05-21 06:19 | NUR ---
Pt slept comfortably throughout the shift. No acute distress noted. No further complaints of pain or discomfort. All due medications given and well tolerated. Kept clean and dry. All needs well attended to and met promptly. All safety measures and fall precautions maintained. Call light within reach. Will continue to monitor. Will endorse to AM shift.
[2017-05-21] MEDS: LEVOTHYROXINE SODIUM 200 MCG TABLET PO SCH (06:54)
--- NOTE | 2017-05-21 07:00 | NUR ---
Received patient asleep, lying on bed easily aroused with no SOB or distress noted. Call light within reach. Will continue to monitor.
[2017-05-21] MEDS: BUDESONIDE 0.5 MG/2 ML NEBU NEB SCH ×2 (07:30→19:14)
[2017-05-21 07:54] VITALS: BP 101/53
[2017-05-21 08:24] LABS: BASOPHILS # (AUTO) 0.1 K/uL (0.0-8.0); BASOPHILS % (AUTO) 0.7 % (0.0-2.0); EOSINOPHILS # (AUTO) 0.1 K/uL (0.0-0.7); HEMATOCRIT 26.6 % (31.2-41.9); LYMPHOCYTES # (AUTO) 2.3 K/uL (20.0-40.0); LYMPHOCYTES % (AUTO) 25.5 % (20.5-51.5); MEAN CORPUSCULAR HGB CONC 34 g/dL (32.3-35.6); MEAN CORPUSCULAR VOLUME 76.7 fL (75.5-95.3); MONOCYTES # (AUTO) 0.7 K/uL (2.0-10.0); MONOCYTES % (AUTO) 7.3 % (0.0-11.0); NEUTROPHILS # (AUTO) 5.9 K/uL (1.8-8.9); NEUTROPHILS % (AUTO) 65.5 % (38.5-71.5); PLATELET COUNT (AUTO) 488 K/uL (179-408); RED BLOOD CELL COUNT(AUTO) 3.47 MIL/uL (3.63-4.92)
[2017-05-21 08:35] LABS: CARBON DIOXIDE 31 mmol/L (21-32); CHLORIDE 104 mmol/L (98-107); CREATININE 0.6 mg/dL (0.6-1.3); GLUCOSE 96 mg/dL (74-106); MAGNESIUM 1.6 mg/dL (1.8-2.4); PHOSPHOROUS 4.1 mg/dL (2.5-4.9); UREA NITROGEN, BLOOD 13 mg/dL (7-18)
[2017-05-21] MEDS: ATENOLOL 50 MG TABLET PO SCH (09:00)
[2017-05-21] MEDS: LOSARTAN POTASSIUM 50 MG TABLET PO SCH ×2 (09:00→21:26)
[2017-05-21] MEDS: OXYCODONE HCL 20 MG TAB.SR.12H PO SCH ×2 (09:00→21:25)
[2017-05-21] MEDS: AMLODIPINE 5 MG TABLET PO SCH (09:00)
[2017-05-21] MEDS: OXYCODONE HCL 10 MG TAB.SR.12H PO SCH ×2 (09:00→21:26)
[2017-05-21] MEDS: GABAPENTIN 300 MG CAPSULE PO SCH ×3 (09:00→17:30)
[2017-05-21] MEDS: CETIRIZINE HCL 10 MG TABLET PO SCH (09:07)
[2017-05-21] MEDS: CRANBERRY 500 MG PO SCH (09:07)
[2017-05-21 09:51] LABS: BAND % (MANUAL) 1 % (0-10); EOSINOPHILS % (MANUAL) 2 % (0-8); LYMPHOCYTES % (MANUAL) 24 % (20-40); MONOCYTES % (MANUAL) 6 % (2-10); MYELOCYTES % 3 % (0-0); NEUTROPHILS % (MANUAL) 61 % (42-75)
[2017-05-21 10:12] LABS: REACTIVE LYMPHOCYTES 3 % (0-0)
--- NOTE | 2017-05-21 10:25 | NUR ---
Wound care treatment done, toelrated well with caregiver at the bedside. Photo taken of patient's buttocks. photo filed in the chart. G-Tube site cleaned with no sogns and symptoms of infections
[2017-05-21] MEDS ORDERED: MAGNESIUM OXIDE 400 MG TABLET PO ONE (14:45)
--- NOTE | 2017-05-21 15:08 | NUR ---
Interdisciplinary Team Conference
--- NOTE | 2017-05-21 19:00 | NUR ---
Patient remained stable throughout the shift, no SOB or distress. All needs were attended and anticipated with her caregiver at bedside. call light placed within reach. Patient was encouraged to use estrella light whenever assistance is needed. Will endorse to incoming shift.
[2017-05-21 21:01] VITALS: BP 134/59
[2017-05-21] MEDS: EZETIMIBE 10 MG TABLET PO SCH (21:26)
[2017-05-21] MEDS: ATORVASTATIN 10 MG TABLET PO SCH (21:27)
[2017-05-21] MEDS: TRAZODONE 100 MG TABLET PO SCH (21:27)
[2017-05-22] MEDS: hydrOXYzine HCL 25 MG TABLET PO PRN (00:27)
[2017-05-22] MEDS: BUDESONIDE 0.5 MG/2 ML NEBU NEB SCH ×2 (06:52→18:48)
[2017-05-22] MEDS: LEVOTHYROXINE SODIUM 200 MCG TABLET PO SCH (06:52)
[2017-05-22] MEDS: GABAPENTIN 300 MG CAPSULE PO SCH ×3 (09:19→17:19)
[2017-05-22] MEDS: ATENOLOL 50 MG TABLET PO SCH (09:20)
[2017-05-22] MEDS: AMLODIPINE 5 MG TABLET PO SCH (09:21)
[2017-05-22] MEDS: CETIRIZINE HCL 10 MG TABLET PO SCH (09:21)
[2017-05-22] MEDS: CRANBERRY 500 MG PO SCH (09:25)
[2017-05-22] MEDS: LOSARTAN POTASSIUM 50 MG TABLET PO SCH ×2 (09:26→21:00)
[2017-05-22] MEDS: OXYCODONE HCL 20 MG TAB.SR.12H PO SCH ×2 (09:30→20:53)
[2017-05-22] MEDS: OXYCODONE HCL 10 MG TAB.SR.12H PO SCH ×2 (09:30→20:56)
[2017-05-22 09:59] VITALS: BP 134/46
[2017-05-22 20:09] VITALS: BP 96/41
[2017-05-22] MEDS ORDERED: BARIUM SULFATE 148 GM SUSP.RECON PO ONE (20:34)
[2017-05-22] MEDS ORDERED: BARIUM SULFATE 240 ML ORAL.SUSP PO ONE (20:34)
[2017-05-22] MEDS: EZETIMIBE 10 MG TABLET PO SCH (20:50)
[2017-05-22] MEDS: ATORVASTATIN 10 MG TABLET PO SCH (20:50)
[2017-05-22] MEDS: TRAZODONE 100 MG TABLET PO SCH (21:00)
--- NOTE | 2017-05-22 23:29 | NUR ---
2100 trazodone and Cozaar held as pt's systolic BP was 90 to 96 and pt is drowzy. pt stable and in no distress. continue to monitor.
--- NOTE | 2017-05-23 00:15 | NUR ---
Received report from ERIK Licona. Pt resting in bed comfortably with no signs of distress. Denies pain and discomfort. No SOB noted. Kept clean, dry and comfortable. Frequently checked for safety. Call light within reach. All needs met.
--- NOTE | 2017-05-23 05:45 | NUR ---
Patient slept well throughout the shift. No acute distress noted. Breathing even and unlabored with normal respirations. Denies pain. Kept clean, dry and comfortable. Call light within reach. All needs attended.
[2017-05-23] MEDS: LEVOTHYROXINE SODIUM 200 MCG TABLET PO SCH (06:36)
[2017-05-23 07:41] VITALS: BP 158/85
[2017-05-23] MEDS: AMLODIPINE 5 MG TABLET PO SCH (09:00)
[2017-05-23] MEDS: ATENOLOL 50 MG TABLET PO SCH (09:00)
[2017-05-23] MEDS: LOSARTAN POTASSIUM 50 MG TABLET PO SCH (09:00)
[2017-05-23] MEDS: CETIRIZINE HCL 10 MG TABLET PO SCH (09:36)
[2017-05-23] MEDS: GABAPENTIN 300 MG CAPSULE PO SCH (09:36)
[2017-05-23] MEDS: CRANBERRY 500 MG PO SCH (09:36)
[2017-05-23] MEDS: OXYCODONE HCL 10 MG TAB.SR.12H PO SCH (09:38)
[2017-05-23] MEDS: OXYCODONE HCL 20 MG TAB.SR.12H PO SCH (09:39)
--- NOTE | 2017-05-23 10:15 | NUR ---
SBAR report received by bedside, board updated. Pt assessed, alert, oriented x4,Pt c/o pain /, pain medications administered as ordered along with all other routine morning medications. BP 107/41, pulse 75, 3 BP medications held r/t lowered BP. RT able to be administered following breakfast per Pt request. Pt able to make needs known. All safety and comfort measures met at this time. Call light and personal items within reach. recreation aide at bedside. Will continue to monitor.
[2017-05-23] MEDS: BUDESONIDE 0.5 MG/2 ML NEBU NEB SCH ×2 (11:15→19:04)
[2017-05-23 11:31] VITALS: BP 123/47
[2017-05-23] MEDS: CLONIDINE-TTS 1 PATCH TD SCH (11:31)
--- NOTE | 2017-05-23 13:46 | NUR ---
Pt seen by . New orders for d/c later today around 1700 to home with healthcare. Plan of care regarding d/c discussed with Pt and primary inserter promotional item. F/U with Dr. Wayne on 05/29 at 2pm, Dr. Dao for GI consult 05/28 at 3:30pm, and [facility] at 1:30 on 05/27. Will continue to monitor and process d/c paperwork.
[2017-05-23] MEDS ORDERED: hydrALAZINE HCL 25 MG TABLET PO PRN (17:00)
--- NOTE | 2017-05-23 17:59 | NUR ---
Pt D/C paperwork complete. Ambulance v/s desated to between 84-81%, 92/36, 66 pulse, and 16 RR ambulance declined to transport. MD notified, new orders received for CBC, BMP, and CXR. RT notified for PRN breathing Tx. Will continue to monitor and f/u.
[2017-05-23] MEDS: IPRATROPIUM BROMIDE 0.5 MG/2.5 ML NEBU NEB PRN (18:11)
[2017-05-23] MEDS: ALBUTEROL SULFATE 2.5 MG/3 ML NEBU IH PRN (18:11)
--- NOTE | 2017-05-23 20:06 | NUR ---
Pt seen by MD Madison, order hand written to transfer pt to ED r/t continued desaturation of O2 to 83% following PRN RT Tx at 96%. V/S retaken 109/46, 79, 98.6 temp, 85% on 4L O2. personnel clerks supervisor notified, nursing supervisor inspection notified. Pt transported by bed to ED. Pt chart and history provided. Pt placed on TODD.
[2017-05-24 05:19] LABS: BASOPHILS # (AUTO) 0.1 K/uL (0.0-8.0); BASOPHILS % (AUTO) 0.8 % (0.0-2.0); EOSINOPHILS # (AUTO) 0.1 K/uL (0.0-0.7); HEMATOCRIT 24.7 % (37-47); LYMPHOCYTES # (AUTO) 2.5 K/UL (0.8-4.8); LYMPHOCYTES % (AUTO) 22.5 % (20.5-51.5); MEAN CORPUSCULAR HEMOGLOBIN 24.7 UUG (27.0-31.0); MEAN CORPUSCULAR HGB CONC 32 g/dL (32.0-37.0); MEAN CORPUSCULAR VOLUME 77.3 FL (81.0-99.0); MONOCYTES # (AUTO) 0.9 K/UL (0.1-1.30); MONOCYTES % (AUTO) 8.5 % (0.0-11.0); NEUTROPHILS # (AUTO) 7.3 K/UL (1.8-8.9); NEUTROPHILS % (AUTO) 67.2 % (38.5-71.5); PLATELET COUNT (AUTO) 528 K/UL (150-450); WHITE BLOOD COUNT (AUTO) 10.9 K/UL (4.0-11.2)
[2017-05-24 05:21] LABS: CARBON DIOXIDE 31 mmol/L (21-32); CHLORIDE 103 mmol/L (98-107); CREATININE 1.2 mg/dL (0.6-1.3); GLUCOSE 102 mg/dL (74-106); MAGNESIUM 1.6 mg/dL (1.8-2.4); PHOSPHOROUS 3.7 mg/dL (2.5-4.9); UREA NITROGEN, BLOOD 20 mg/dL (7-18)
[2017-05-24 05:24] LABS: HEMOGLOBIN 7.9 G/DL (12.0-16.0)
== END 2017-05-23 20:35 | disposition short-term general hospital (02) | DRG 871 ==
LOC: UNDOLOA 05-23 20:30
PROVIDERS: ADMIT Physical Medicine & Rehabilitation Pain Medicine; ATTEND Physical Medicine & Rehabilitation Pain Medicine
DX: A41.9 Sepsis, unspecified organism (principal); E43 Unspecified severe protein-calorie malnutrition; G93.40 Encephalopathy, unspecified; G62.9 Polyneuropathy, unspecified; R09.02 Hypoxemia; D68.59 Other primary thrombophilia; I27.20 Pulmonary hypertension, unspecified; I11.0 Hypertensive heart disease with heart failure; I50.9 Heart failure, unspecified; N39.0 Urinary tract infection, site not specified; L03.115 Cellulitis of right lower limb; L03.116 Cellulitis of left lower limb; Z93.1 Gastrostomy status; R13.10 Dysphagia, unspecified; J44.9 Chronic obstructive pulmonary disease, unspecified; E03.9 Hypothyroidism, unspecified; G89.4 Chronic pain syndrome; D63.8 Anemia in other chronic diseases classified elsewhere; R19.5 Other fecal abnormalities; E66.3 Overweight; Z68.26 Body mass index [BMI] 26.0-26.9, adult; E78.5 Hyperlipidemia, unspecified; I25.2 Old myocardial infarction; I25.10 Atherosclerotic heart disease of native coronary artery without angina pectoris; I34.0 Nonrheumatic mitral (valve) insufficiency; K21.9 Gastro-esophageal reflux disease without esophagitis; K44.9 Diaphragmatic hernia without obstruction or gangrene; M06.9 Rheumatoid arthritis, unspecified; M19.90 Unspecified osteoarthritis, unspecified site; M48.061 Spinal stenosis, lumbar region without neurogenic claudication; Z79.891 Long term (current) use of opiate analgesic; Z87.891 Personal history of nicotine dependence; Z90.49 Acquired absence of other specified parts of digestive tract; Z99.81 Dependence on supplemental oxygen; E66.9 Obesity, unspecified; Z95.0 Presence of cardiac pacemaker; Z88.0 Allergy status to penicillin; Z88.2 Allergy status to sulfonamides; Z88.8 Allergy status to other drugs, medicaments and biological substances; Z88.1 Allergy status to other antibiotic agents; Z91.040 Latex allergy status; Z90.710 Acquired absence of both cervix and uterus; D50.0 Iron deficiency anemia secondary to blood loss (chronic); R10.9 Unspecified abdominal pain
CPT/HCPCS: 36415; 71010; 74230; 82785; 83735; 84100; 85025; 92526; 92610; 92611; 94640; 97110; 97112; 97116; 97165; 97530; 97535; A4663; J3590

== ENCOUNTER 2017-05-23 19:59 | Inpatient (IN) | payer MEDICARE, OTHER ==
[~2017-05-23] VITALS: Ht 157.5 cm; Wt 55.5 kg
[~2017-05-23 19:59] MED LIST changes: +ACET-2154 PO; +ACID1TAB4 GT; -DIPH1TAB PO; +ENOX30DI5 SQ; +FLUT1BLS IH; +LEVO250T59 PO; +MAG30ORA PO; +MAGN400O6 PO; -MIDO5TAB PO; +PANT40TA4 PO; -SULF1TAB48 PO; +[UNRECOGNIZED DRUG - CODE] PO; -[UNRECOGNIZED DRUG - CODE] PO
--- NOTE | 2017-05-23 20:15 | NUR ---
Pt brought down from floor for low SPO2. approx 83%. Pt attached to monitor, IV R FA 20g, labs drawn and given to label folder, intubated by .
[2017-05-23] MEDS ORDERED: ALBUTEROL SULFATE 2.5 MG/ 0.5 ML NEBU ONE (20:29)
[2017-05-23] MEDS ORDERED: PROPOFOL 100 ML ONE (20:30)
[2017-05-23] MEDS ORDERED: SUCCINYLCHOLINE CHLORIDE 200 MG/10 ML VIAL IV ONE (20:30)
[2017-05-23] MEDS ORDERED: PROPOFOL 100 ML IV PRN (20:30)
[2017-05-23] MEDS ORDERED: ETOMIDATE 20 MG/10 ML VIAL IV ONE (20:30)
[2017-05-23] MEDS ORDERED: IV NORMAL SALINE 500 ML BAG IV ONE (20:30)
[2017-05-23] MEDS ORDERED: LEVOFLOXACIN 750 MG/D5W 150 ML PIGGYBACK IV ONE (20:30)
[2017-05-23] MEDS ORDERED: ALBUTEROL SULFATE 2.5 MG/3 ML NEBU ONE (20:41)
[2017-05-23 20:49] LABS: ABG BASE EXCESS 2.5 mmol/L; ABG HCO3 26.2 mmol/L; ABG PCO2 36.7 mmHg (35.0-45.0); ABG PH 7.471 (7.350-7.450); ABG PO2 320.9 mmHg (75.0-100.0); ABG SITE LEFT RADIAL; ABG TOTAL HEMOGLOBIN 9.9 G/dL (12.0-16.0); COHb 0.8 % (0.5-1.5); MetHb 0.2 % (0.0-1.5); O2Hb 98.9 % (94.0-97.0); VENT MODE VENT - A/C; VT, ABG 550 mL
[2017-05-23 20:55] LABS: BASOPHILS # (AUTO) 0.1 K/uL (0.0-8.0); BASOPHILS % (AUTO) 0.6 % (0.0-2.0); CARBON DIOXIDE 32 mmol/L (21-32); CHLORIDE 102 mmol/L (98-107); CREATININE 0.9 mg/dL (0.6-1.3); EOSINOPHILS # (AUTO) 0.2 K/uL (0.0-0.7); EOSINOPHILS % (AUTO) 1.4 % (0.0-7.0); GLUCOSE 116 mg/dL (74-106); HEMOGLOBIN 9.9 G/DL (12.0-16.0); LYMPHOCYTES # (AUTO) 3.8 K/UL (0.8-4.8); LYMPHOCYTES % (AUTO) 35.3 % (20.5-51.5); MEAN CORPUSCULAR HEMOGLOBIN 25.7 UUG (27.0-31.0); MEAN CORPUSCULAR HGB CONC 33 g/dL (32.0-37.0); MEAN CORPUSCULAR VOLUME 77.8 FL (81.0-99.0); MONOCYTES # (AUTO) 0.9 K/UL (0.1-1.30); MONOCYTES % (AUTO) 8.2 % (0.0-11.0); NEUTROPHILS # (AUTO) 5.8 K/UL (1.8-8.9); NEUTROPHILS % (AUTO) 54.5 % (38.5-71.5); PLATELET COUNT (AUTO) 600 K/UL (150-450); POTASSIUM 4.7 mmol/L (3.5-5.1); RED BLOOD CELL COUNT(AUTO) 3.86 MIL/UL (4.2-5.4); UREA NITROGEN, BLOOD 18 mg/dL (7-18); WHITE BLOOD COUNT (AUTO) 10.8 K/UL (4.0-11.2)
--- NOTE | 2017-05-23 20:55 | NUR ---
increased propofol to 10 mcg/kg/min from 5
[2017-05-23 21:08] LABS: ALANINE AMINOTRANSFERASE 108 U/L (14-59); ALKALINE PHOSPHATASE 254 U/L (50-136); ASPARTATE AMINOTRANSFERASE 216 U/L (15-37); BILIRUBIN,DIRECT 0.6 mg/dL (0.0-0.2); TOTAL PROTEIN, SERUM 6.7 g/dL (6.4-8.2)
--- NOTE | 2017-05-23 21:29 | NUR ---
PATIENT INTUBATED AT 2009. PLACED ON VENT AT 2014 WITH THE FOLLOWING SETTINGS FROM DR. ESQUIVEL: AC 14, 550, PEEP +5, FIO2 100%. PATIENT IS ORALLY INTUBATED WITH SIZE 7.0 ET TUBE. ANCHOR FAST IS PLACED TO HOLD ET TUBE AT 21 CM LIP LINE. ABG DONE 2037. RESULTS GIVEN TO DR. ESQUIVEL. FIO2 CHANGED TO 50% AFTER ABG (VERBAL ORDER FROM DR. ESQUIVEL). ALARMS ARE ON AND AUDIBLE. SUCTIONED THICK YELLOW AND BLOODY SECRETIONS. RETRIEVED SPUTUM SAMPLE AND TOOK IT THE LAB. VENT IS PLUGGED IN THE RED OUTLET. WILL CONTINUE TO MONITOR.
[2017-05-23] MEDS ORDERED: NITROGLYCERIN OINT 1 GM PACKET TP ONE ×2 (21:30→22:16)
[2017-05-23] MEDS ORDERED: FUROSEMIDE 20 MG/2 ML VIAL IV ONE (21:30)
[2017-05-23] MEDS ORDERED: ACETAMINOPHEN 325 MG TABLET PO PRN (22:00)
[2017-05-23] MEDS ORDERED: MAGNESIUM HYDROXIDE 30 ML LIQUID UDC PO PRN (22:00)
[2017-05-23] MEDS ORDERED: LEVOFLOXACIN 500 MG/D5W 500 MG in PREMIXED 1 EACH IV SCH (22:00)
[2017-05-23] MEDS ORDERED: ONDANSETRON 4 MG/2 ML VIAL IV PRN (22:00)
--- NOTE | 2017-05-23 22:00 | NUR ---
Mejia Catheter placed using aseptic technique, urine sample taken to lab.
--- NOTE | 2017-05-23 22:15 | NUR ---
G-tube attached to low suction, per .
[2017-05-23] MEDS ORDERED: FUROSEMIDE 40 MG/4 ML VIAL ONE (22:17)
[2017-05-23] MEDS ORDERED: LEVOFLOXACIN 750MG/D5W 150 ML IV ONE (22:17)
[2017-05-23 22:23] LABS: BAND % (MANUAL) 12 % (0-10); LYMPHOCYTES % (MANUAL) 35 % (20-40); MONOCYTES % (MANUAL) 10 % (2-10); NEUTROPHILS % (MANUAL) 43 % (42-75)
[2017-05-23] MEDS ORDERED: IV NORMAL SALINE 250 ML IV ONE (22:56)
[2017-05-23] MEDS ORDERED: NORMAL SALINE FLUSH 10 ML DISP.SYRIN ONE (22:56)
[2017-05-23] MEDS ORDERED: IOHEXOL 350 100 ML INFUS..BTL ONE (22:56)
[2017-05-23] MEDS ORDERED: ENOXAPARIN SODIUM 60 MG/0.6 ML DISP.SYRIN SQ ONE ×2 (23:00→23:32)
--- NOTE | 2017-05-23 23:31 | NUR ---
Called report to
[2017-05-24] VITALS (82 sets, daily range): BP systolic 58–158; BP diastolic 26–100
--- NOTE | 2017-05-24 00:20 | NUR ---
PT TRANSFERRED TO CCU BED 5 FROM ER WITH NO COMPLICATIONS. PT IS ON FLANAGAN VENT WITH SETTINGS OF AC 14, VT 550, PEEP +5, 50% FIO2. VENT CHECK DONE. ALARMS CHECKED, ARE ON AND AUDIBLE. PT IS ORALLY INTUBATED WITH A 7.0 ETT APPROX. 21CM LIP LINE. AMBU BAG IS AT BEDSIDE. SUCTIONED MODERATE AMOUNT OF YELLOWISH, THICK SECRETIONS. ORAL CARE DONE. ETT WILL BE MOVED/READJUSTED ACCORDINGLY THROUGHOUT SHIFT. NO S/S OF RESPIRATORY DISTRESS NOTED AT THIS TIME. WILL CONTINUE TO MONITOR.
[2017-05-24] MEDS: PROPOFOL 100 ML IV PRN ×3 (01:16→21:35)
[2017-05-24 01:38] LABS: ABG BASE EXCESS 4.3 mmol/L; ABG HCO3 28.7 mmol/L; ABG PCO2 42.8 mmHg (35.0-45.0); ABG PH 7.445 (7.350-7.450); ABG PO2 100.4 mmHg (75.0-100.0); ABG SITE RIGHT RADIAL; ABG TOTAL HEMOGLOBIN 9.3 G/dL (12.0-16.0); COHb 0.8 % (0.5-1.5); MetHb 0.2 % (0.0-1.5); O2Hb 96.6 % (94.0-97.0); VENT MODE VENT - A/C; VT, ABG 550 mL
--- NOTE | 2017-05-24 01:40 | NUR ---
Dr. ayala called report given on patient arriving to the unit and conformation of orders, new orders recieved. pt condition reported. report given on pt temp and if wanted to place pt on sepsis protocol Dr said not at this time. SK
[2017-05-24 01:48] LABS: *BILIRUBIN,URIN NEGATIVE (NEGATIVE); *BLOOD, URINE 1+ (NEGATIVE); *CLARITY,URINE CLOUDY (CLEAR); *COLOR,URINE YELLOW (YELLOW); *KETONES,URINE NEGATIVE (NEGATIVE); *PROTEIN,URINE 2+ (NEGATIVE); *UROBILINOGEN,URINE 0.2 E.U./dl (NORMAL); LEUKOCYTE ESTERASE ,URINE 1+ (NEGATIVE); NITRITE, URINE NEGATIVE (NEGATIVE); PH,URINE 7.5 (5.0-8.0); UGLUCOSE NEGATIVE (NEGATIVE)
[2017-05-24 01:59] LABS: WBC,URINE TNTC /HPF (0-3)
[2017-05-24 02:00] LABS: BACTERIA,URINE MANY /HPF (NONE SEEN); SQUAMOUS EPITHELIAL CELL,UR FEW /HPF (NONE SEEN)
[2017-05-24 05:22] LABS: BILIRUBIN,DIRECT 0.2 mg/dL (0.0-0.2); BILIRUBIN,TOTAL 0.6 mg/dL (0.2-1.0); TOTAL PROTEIN, SERUM 5.8 g/dL (6.4-8.2)
--- NOTE | 2017-05-24 06:28 | NUR ---
Dr ayala called critical lab report given on pts VS. labs reported. critical hemoglobin reported, drop from yesterday 9.9 to 7.9 todays. no orders received.
--- NOTE | 2017-05-24 07:15 | NUR ---
Report received from Jose. 87 yr old female was admitted on 05/23 for resp failure, chf. was intubated and on propofol drip. patient has a permanent pacer for afib, currently is sinusrhythm HR 70/min. has a GT and a warner catheter. patient has a central line tlc via right internal jugular vein.. ett to vent tv 550 ac 14, peep 5 and fio2 30% Addendum: 05/24/17 at 1728 by MARVEL FINNEY RN Amended: Links added.
[2017-05-24] MEDS: NOREPINEPHRINE BITARTRATE 16 MG in IV DEXTROSE 5% 500 ML IV PRN (08:39)
[2017-05-24 08:52] LABS: ABG BASE EXCESS 4.6 mmol/L; ABG HCO3 27.9 mmol/L; ABG PCO2 36.1 mmHg (35.0-45.0); ABG PH 7.506 (7.350-7.450); ABG PO2 60.4 mmHg (75.0-100.0); ABG SITE RIGHT RADIAL; ABG TOTAL HEMOGLOBIN 8.5 G/dL (12.0-16.0); COHb 1.7 % (0.5-1.5); MetHb 0.5 % (0.0-1.5); O2Hb 89.2 % (94.0-97.0); VENT MODE VENT - A/C; VT, ABG 550 mL
[2017-05-24] MEDS: FUROSEMIDE 40 MG/4 ML VIAL IV SCH ×2 (08:59→20:06)
[2017-05-24] MEDS: HYDROCODONE/APAP 5-325MG TABLET PO PRN (09:00)
--- NOTE | 2017-05-24 09:00 | NUR ---
jarvis drawn per RT, results to Dr. Hsieh. orders received TV decreased to 500. Addendum: 05/24/17 at 1609 by MARVEL FINNEY RN Amended: Links added. Addendum: 05/24/17 at 1610 by MARVEL FINNEY RN Amended: Links added.
--- NOTE | 2017-05-24 09:05 | NUR ---
Vt lowered to 500 post ABG and per MD order..
[2017-05-24] MEDS: IV NORMAL SALINE 250 ML IV PRN (10:16)
[2017-05-24] MEDS: Z GUARD REMEDY PASTE 57 GM TUBE TOP SCH ×2 (10:17→20:07)
--- NOTE | 2017-05-24 12:00 | NUR ---
seen by dr Li. orders received. Addendum: 05/24/17 at 1826 by MARVEL FINNEY RN Amended: Links added.
[2017-05-24] MEDS ORDERED: ENOXAPARIN SODIUM 40 MG/0.4 ML DISP.SYRIN SQ SCH (12:45)
--- NOTE | 2017-05-24 12:45 | NUR ---
Seen by Dr Lyons , no orders received. Addendum: 05/24/17 at 1607 by MARVEL FINNEY RN Amended: Anastasiia added. Addendum: 05/24/17 at 1609 by MARVEL FINNEY RN Amended: Anastasiia added. Addendum: 05/24/17 at 1610 by MARVEL FINNEY RN Amended: Links added.
--- NOTE | 2017-05-24 13:00 | NUR ---
echocardiogram done at the bedside. Addendum: 05/24/17 at 1620 by MARVEL FINNEY RN Amended: Links added.
[2017-05-24] MEDS: ENOXAPARIN SODIUM 30 MG/0.3 ML DISP.SYRIN SUBCUT SCH (13:23)
--- NOTE | 2017-05-24 15:00 | NUR ---
started on tube fdg nutren 1.5 at 25ml/hr via gt. Addendum: 05/24/17 at 1615 by MARVEL FINNEY RN Amended: Links added.
[2017-05-24 15:03] LABS: FERRITIN 160 ng/mL (8-252)
[2017-05-24] MEDS: NUTREN 1.5 1000ML BAG GT PRN (15:09)
[2017-05-24 15:21] LABS: IRON, SERUM 32 ug/dL (50-175)
--- NOTE | 2017-05-24 16:11 | NUR ---
seen by dr Woods, neurology, no new orders. Addendum: 05/24/17 at 1611 by MARVEL FINNEY RN Amended: Anastasiia added. Addendum: 05/24/17 at 1613 by MARVEL FINNEY RN Amended: Anastasiia added. Addendum: 05/24/17 at 1615 by MARVEL FINNEY RN Amended: Links added.
--- NOTE | 2017-05-24 16:13 | NUR ---
pm care done, gt site care done, oral care, zguard applied to under breasts, groin folds, and perianal areas. foam dressing applied to coccygeal area.arms are bruised. central line dressing done Addendum: 05/24/17 at 1613 by MARVEL FINNEY RN Amended: Links added. Addendum: 05/24/17 at 1615 by MARVEL FINNEY RN Amended: Links added.
--- NOTE | 2017-05-24 16:16 | NUR ---
echocardiogram done at the bedside.
--- NOTE | 2017-05-24 18:32 | NUR ---
Pt received in bed, semi-Gibbs's, unable to communicate.. Oral intubation: ETT 7.0, 21 @ lip line.. mechanical ventilation: vent Ocampo, settings: A/C 14, Vt 550, PEEP +5, FiO2 30%.. alarms on and audible, no changes made at this time.. will continue to monitor..
--- NOTE | 2017-05-24 19:28 | NUR ---
Report given to Jose. Addendum: 05/24/17 at 1928 by MARVEL FINNEY RN Amended: Links added.
--- NOTE | 2017-05-24 19:36 | NUR ---
Receive pt orally intubated with 7.0 ETT~21cm at lip line, on Ocampo vent with the following settings of AC-14, Vt-500, PEEP+5, FIO2-30%. No respiratory distress noted. Airway care done, pt responded to physical stimuli. ETT moved to the right. Resus. bag at bedside. Vent and alarms checked and reset.
[2017-05-24] MEDS ORDERED: MEROPENEM 500 MG VIAL IV ONE ×2 (20:48→22:39)
[2017-05-24] MEDS ORDERED: LEVOFLOXACIN 250MG /D5W 250 MG in PREMIXED 1 EACH IV SCH (21:00)
[2017-05-24] MEDS ORDERED: MEROPENEM 0.5 G in IV NORMAL SALINE 50 ML IV SCH (22:00)
[2017-05-25] VITALS (94 sets, daily range): BP systolic 77–155; BP diastolic 30–70
[2017-05-25] MEDS: HYDROCODONE/APAP 5-325MG TABLET PO PRN ×3 (00:15→21:57)
[2017-05-25] MEDS: PROPOFOL 100 ML IV PRN ×4 (03:11→20:01)
--- NOTE | 2017-05-25 07:15 | NUR ---
Report received from Jose.87yf admitted on 05/23 for respiratory failure and chf. remains orally intubated, to vent ac 14, tv 500 peep 5cm, fio2 30%, on propofol drip at 40mcg/kg/min, levophed drip at 2 mcg/min. IV NS tko. all IV fluids infusing via Rint JUG vein.ekg sinus rhythm with occasional pacer spikes. warner catheter intact urine output is adequate output.gt intact. is receiving tube fdg at 35ml/hr Addendum: 05/25/17 at 0742 by MARVEL FINNEY RN Amended: Links added.
--- NOTE | 2017-05-25 08:00 | NUR ---
RECEIVED PT ON CONTINUOUS VENT AC 14 VT 500 PEEP 5 FIO2 30%. ORAL CARE DONE. SUCTION PRN SMALL AMOUNT THICK YELLOW SECRETIONS. VENT CHECKED, ALARMS WORKING WELL AND AUDIBLE. NO DISTRESS NOTED AT THIS TIME. WILL CONTINUE TO MONITOR.
[2017-05-25] MEDS: FUROSEMIDE 40 MG/4 ML VIAL IV SCH ×2 (08:04→20:02)
[2017-05-25] MEDS: ENOXAPARIN SODIUM 30 MG/0.3 ML DISP.SYRIN SUBCUT SCH (08:05)
[2017-05-25] MEDS: Z GUARD REMEDY PASTE 57 GM TUBE TOP SCH ×2 (08:06→20:06)
[2017-05-25] MEDS: IV NORMAL SALINE 250 ML IV PRN (08:11)
[2017-05-25] MEDS ORDERED: NORMAL SALINE FLUSH 10 ML DISP.SYRIN IV PRN (08:15)
[2017-05-25 08:35] LABS: ABG BASE EXCESS 6.1 mmol/L; ABG HCO3 29.2 mmol/L; ABG PCO2 36.5 mmHg (35.0-45.0); ABG PH 7.521 (7.350-7.450); ABG PO2 85.8 mmHg (75.0-100.0); ABG SITE LEFT BRACHIAL; ABG TOTAL HEMOGLOBIN 9.7 G/dL (12.0-16.0); COHb 0.8 % (0.5-1.5); MetHb 0.3 % (0.0-1.5); O2Hb 95.3 % (94.0-97.0); VENT MODE VENT - A/C; VT, ABG 500 mL
[2017-05-25 08:39] LABS: ALANINE AMINOTRANSFERASE 68 U/L (14-59); ALKALINE PHOSPHATASE 209 U/L (50-136); ASPARTATE AMINOTRANSFERASE 68 U/L (15-37); BILIRUBIN,TOTAL 0.9 mg/dL (0.2-1.0); CARBON DIOXIDE 30 mmol/L (21-32); CREATININE 0.9 mg/dL (0.6-1.3); GLUCOSE 109 mg/dL (74-106); MAGNESIUM 1.6 mg/dL (1.8-2.4); PHOSPHOROUS 3.8 mg/dL (2.5-4.9); TOTAL PROTEIN, SERUM 6.3 g/dL (6.4-8.2); UREA NITROGEN, BLOOD 21 mg/dL (7-18)
[2017-05-25 08:43] LABS: CHLORIDE 102 mmol/L (98-107)
[2017-05-25] MEDS: NOREPINEPHRINE BITARTRATE 16 MG in IV DEXTROSE 5% 500 ML IV PRN (08:47)
[2017-05-25 08:49] LABS: POTASSIUM 2.8 mmol/L (3.5-5.1)
--- NOTE | 2017-05-25 09:00 | NUR ---
seen by Dr Skelton with no new orders Addendum: 05/25/17 at 1355 by MARVEL FINNEY RN Amended: Links added.
[2017-05-25 09:03] LABS: BASOPHILS # (AUTO) 0.1 K/uL (0.0-8.0); BASOPHILS % (AUTO) 0.7 % (0.0-2.0); EOSINOPHILS # (AUTO) 0.2 K/uL (0.0-0.7); EOSINOPHILS % (AUTO) 2.1 % (0.0-7.0); HEMATOCRIT 26.6 % (31.2-41.9); HEMOGLOBIN 9.1 g/dL (10.9-14.3); LYMPHOCYTES # (AUTO) 1.7 K/uL (20.0-40.0); LYMPHOCYTES % (AUTO) 19.1 % (20.5-51.5); MEAN CORPUSCULAR HEMOGLOBIN 26.2 uug (24.7-32.8); MEAN CORPUSCULAR HGB CONC 34 g/dL (32.3-35.6); MEAN CORPUSCULAR VOLUME 77.2 fL (75.5-95.3); MONOCYTES # (AUTO) 0.7 K/uL (2.0-10.0); MONOCYTES % (AUTO) 8.1 % (0.0-11.0); NEUTROPHILS # (AUTO) 6.3 K/uL (1.8-8.9); PLATELET COUNT (AUTO) 479 K/uL (179-408); RED BLOOD CELL COUNT(AUTO) 3.45 MIL/uL (3.63-4.92); WHITE BLOOD COUNT (AUTO) 9.1 K/uL (3.8-11.8)
[2017-05-25] MEDS: MEROPENEM 0.5 G in IV NORMAL SALINE 50 ML IV SCH ×2 (09:08→20:02)
--- NOTE | 2017-05-25 09:30 | NUR ---
seen by Dr. Li. orders received. Addendum: 05/25/17 at 0952 by MARVEL FINNEY RN Amended: Links added. Addendum: 05/25/17 at 0954 by MARVEL FINNEY RN Amended: Links added.
[2017-05-25] MEDS ORDERED: POTASSIUM CHLORIDE 50 ML IV SCH ×2 (09:45→16:10)
--- NOTE | 2017-05-25 09:54 | NUR ---
quirino Sutherland and caregiver Modesta ceron visiting. condition report given. Addendum: 05/25/17 at 0954 by MARVEL FINNEY RN Amended: Links added.
--- NOTE | 2017-05-25 10:00 | NUR ---
magnesium 1.6. Replaced with 2gms mag sulfate Addendum: 05/25/17 at 1358 by MARVEL FINNEY RN Amended: Anastasiia added. Addendum: 05/25/17 at 1359 by MARVEL FINNEY RN Amended: Anastasiia added.
[2017-05-25] MEDS: MAGNESIUM SULFATE/D5W 100 ML IV SCH ×2 (10:08→10:54)
--- NOTE | 2017-05-25 10:15 | NUR ---
k 2.8, replacement of total 70meq kcl started IV vial right TLC Addendum: 05/25/17 at 1359 by MARVEL FINNEY RN Amended: Links added.
[2017-05-25] MEDS: POTASSIUM CHLORIDE 50 ML IV SCH ×3 (10:17→13:49)
--- NOTE | 2017-05-25 12:45 | NUR ---
Seen by Dr Lyons. Orders received Addendum: 05/25/17 at 1319 by MARVEL FINNEY RN Amended: Links added.
[2017-05-25] MEDS: NORMAL SALINE FLUSH 10 ML DISP.SYRIN IV SCH ×2 (14:08→21:07)
[2017-05-25 14:13] LABS: BAND % (MANUAL) 3 % (0-10); EOSINOPHILS % (MANUAL) 1 % (0-8); LYMPHOCYTES % (MANUAL) 22 % (20-40); NEUTROPHILS % (MANUAL) 61 % (42-75)
[2017-05-25 14:14] LABS: MONOCYTES % (MANUAL) 13 % (2-10)
[2017-05-25] MEDS: NUTREN 1.5 1000ML BAG GT PRN (15:06)
[2017-05-25] MEDS ORDERED: POTASSIUM CHLORIDE 10 MEQ in IV DEXTROSE 5% 50 ML IV SCH (16:10)
--- NOTE | 2017-05-25 16:36 | NUR ---
casper Solomon NP for ID Addendum: 05/25/17 at 1637 by MARVEL FINNEY RN Amended: Links added.
--- NOTE | 2017-05-25 16:43 | NUR ---
Clinical Pharmacy Note: Vancomycin Dosing per Pharmacy Subjective: Vancomycin IV to start on this 87 yo female patient for pna. Objective: BUN 21/Scr 0.9 WBC 9.1 Temperature 98.2 resp culture + staph pending sens Assessment/Plan: Will start vancomycin 1000mg IVPB Q31hr for a predicted vancomycin steady state trough level of 15.9 mcg/ml. 1st dose id due today at 1700. Will draw a vancomycin trough level prior to the 4th dose of vancomycin (not ordered yet). Will monitor renal function and adjust vancomycin dose, if needed, should renal function change significantly. Will follow daily.
[2017-05-25] MEDS: VANCOMYCIN IV 1 G in PREMIXED 0 EACH IV SCH (16:57)
--- NOTE | 2017-05-25 19:55 | NUR ---
PATIENT RECEIVED ORALLY INTUBATED ON MECHANICAL VENTILATOR WITH THE FOLLOWING SETTINGS THAT ARE CHARTED ON THE MECHANICAL VENT NOTES. ET TUBE SIZE 7.0, 21 AT THE LIP LINE. ET TUBE IS IN THE MIDDLE OF THE LIP. SUCTIONED SMALL AMOUNTS OF THICK YELLOW SECRETIONS. ALARMS ON AND AUDIBLE. NO SOB NOTED AT THIS TIME. WILL CONTINUE TO MONITOR PATIENT THROUGHOUT THE REST OF THE SHIFT.
[2017-05-26] VITALS (94 sets, daily range): BP systolic 80–168; BP diastolic 30–76
[2017-05-26] MEDS: PROPOFOL 100 ML IV PRN ×5 (01:30→23:40)
[2017-05-26] MEDS: NORMAL SALINE FLUSH 10 ML DISP.SYRIN IV SCH ×3 (05:26→22:22)
[2017-05-26 06:48] LABS: BASOPHILS # (AUTO) 0.1 K/uL (0.0-8.0); BASOPHILS % (AUTO) 0.8 % (0.0-2.0); EOSINOPHILS # (AUTO) 0.3 K/uL (0.0-0.7); EOSINOPHILS % (AUTO) 2.4 % (0.0-7.0); HEMOGLOBIN 9.2 g/dL (10.9-14.3); LYMPHOCYTES # (AUTO) 2.4 K/uL (20.0-40.0); LYMPHOCYTES % (AUTO) 20.8 % (20.5-51.5); MEAN CORPUSCULAR HEMOGLOBIN 25.4 uug (24.7-32.8); MEAN CORPUSCULAR HGB CONC 33 g/dL (32.3-35.6); MEAN CORPUSCULAR VOLUME 77.5 fL (75.5-95.3); MONOCYTES % (AUTO) 8.9 % (0.0-11.0); NEUTROPHILS # (AUTO) 7.8 K/uL (1.8-8.9); NEUTROPHILS % (AUTO) 67.1 % (38.5-71.5); PLATELET COUNT (AUTO) 533 K/uL (179-408); RED BLOOD CELL COUNT(AUTO) 3.61 MIL/uL (3.63-4.92); WHITE BLOOD COUNT (AUTO) 11.6 K/uL (3.8-11.8)
[2017-05-26 07:38] LABS: ALANINE AMINOTRANSFERASE 51 U/L (14-59); ALKALINE PHOSPHATASE 203 U/L (50-136); ASPARTATE AMINOTRANSFERASE 35 U/L (15-37); BILIRUBIN,TOTAL 0.3 mg/dL (0.2-1.0); CARBON DIOXIDE 30 mmol/L (21-32); CHLORIDE 104 mmol/L (98-107); CREATININE 0.8 mg/dL (0.6-1.3); GLUCOSE 116 mg/dL (74-106); MAGNESIUM 2.2 mg/dL (1.8-2.4); POTASSIUM 3.4 mmol/L (3.5-5.1); TOTAL PROTEIN, SERUM 6.5 g/dL (6.4-8.2); UREA NITROGEN, BLOOD 20 mg/dL (7-18)
[2017-05-26] MEDS ORDERED: POTASSIUM CHLORIDE 50 ML IV SCH (08:30)
[2017-05-26] MEDS: FUROSEMIDE 40 MG/4 ML VIAL IV SCH (08:32)
[2017-05-26] MEDS: HYDROCODONE/APAP 5-325MG TABLET PO PRN ×2 (08:35→22:24)
[2017-05-26] MEDS: MEROPENEM 0.5 G in IV NORMAL SALINE 50 ML IV SCH ×2 (08:42→20:53)
[2017-05-26] MEDS: ENOXAPARIN SODIUM 30 MG/0.3 ML DISP.SYRIN SUBCUT SCH (08:42)
[2017-05-26 09:00] LABS: ABG BASE EXCESS 6.4 mmol/L; ABG HCO3 29.7 mmol/L; ABG PCO2 37.5 mmHg (35.0-45.0); ABG PH 7.516 (7.350-7.450); ABG PO2 77.5 mmHg (75.0-100.0); ABG SITE LEFT RADIAL; ABG TOTAL HEMOGLOBIN 9.8 G/dL (12.0-16.0); MetHb 0.4 % (0.0-1.5); O2Hb 93.9 % (94.0-97.0); VENT MODE VENT - A/C
[2017-05-26] MEDS: POTASSIUM CHLORIDE 50 ML IV SCH ×2 (09:33→10:36)
[2017-05-26] MEDS: Z GUARD REMEDY PASTE 57 GM TUBE TOP SCH ×2 (09:34→20:32)
[2017-05-26] MEDS: NOREPINEPHRINE BITARTRATE 16 MG in IV DEXTROSE 5% 500 ML IV PRN (10:45)
--- NOTE | 2017-05-26 11:22 | NUR ---
off levophed. BP consistently >90 since 0700.But had to be resumed at 1045 for persistent hypotension down to the 80's syctolic Addendum: 05/26/17 at 1122 by MARVEL FINNEY RN Amended: Links added. Addendum: 05/26/17 at 1123 by MARVEL FINNEY RN Amended: Links added.
[2017-05-26] MEDS: IV NORMAL SALINE 250 ML IV PRN (11:37)
[2017-05-26] MEDS: LORAZEPAM 2 MG/1 ML VIAL IV PRN (15:04)
--- NOTE | 2017-05-26 15:09 | NUR ---
Clinical Pharmacy Note: Vancomycin Dosing per Pharmacy Subjective: Vancomycin IV to continue on this 87 yo female patient for pna. Objective: ht 5' 2'' wt 135 lb BUN 20/Scr 0.8 WBC 11.6 Temperature 98.9 resp culture + MRSA Assessment/Plan: Will continue same dose of vancomycin 1000mg IVPB Q31hr for today.2nd dose is due tomorrow at midnight. Will draw a vancomycin trough level prior to the 4th dose of vancomycin (not ordered yet). Will monitor renal function and adjust vancomycin dose, if needed, should renal function change significantly. Will follow daily.
[2017-05-26] MEDS: NUTREN 1.5 1000ML BAG GT PRN (18:02)
--- NOTE | 2017-05-26 18:10 | NUR ---
RESUMED CARE POST REPORT FROM NOC SHIFT. PT IS STABLE ON CURRENT VENTILATOR SETTINGS. ABG DONE WITH RESULT GIVEN TO MARVEL FINNEY RN. ORAL CARE DONE AND MOVE ETT TO MID RIGHT. NO OTHER CHANGES WAS MADE. SUCTIONED FOR MODERATE AMOUNT OF REDDISH SECRETION.
[2017-05-26] MEDS ORDERED: IV NORMAL SALINE 500 ML IV ONE (18:30)
--- NOTE | 2017-05-26 19:23 | NUR ---
PT RECEIVED ON FLANAGAN VENT WITH VENT SETTINGS OF AC 14, VT 500, PEEP +5, FIO2 30%. NO S/S OF RESPIRATORY DISTRESS NOTED AT THIS TIME. NO CHANGES MADE. VENT CHECK DONE. ALARMS CHECKED, ARE ON AND AUDIBLE. PT IS ORALLY INTUBATED WITH 7.0 ETT APPROXIMATELY 21CM LIP LINE. ETT IS PATENT AND SECURED VIA ANCHOR-FAST. SUCTIONED MODERATE AMOUNT OF BLOOD-TINGED SECRETIONS. NURSE AWARE. HME CHANGED. AMBU BAG IS AT BEDSIDE. WILL CONTINUE TO MONITOR PT THROUGHOUT SHIFT.
--- NOTE | 2017-05-26 19:30 | NUR ---
Report received. Patient orally intubated and to vent with same settings. On contact isolation for MRSA-sputum. Opens eyes to light stimuli; easily gets agitated. On Diprivan drip at 50 mcg/kg/min. Assessment completed. On Levophed drip for BP support. Addendum: 05/27/17 at 0139 by GINI BENAVIDEZ RN Amended: Links added.
--- NOTE | 2017-05-26 19:31 | NUR ---
REPORT GIVEN TO Latosha RN Addendum: 05/26/17 at 1955 by MARVEL FINNEY RN Amended: Links added.
--- NOTE | 2017-05-26 20:45 | NUR ---
Levophed drip titrated down; BPs monitored closely. With BRB ETT secretions. ( as per Flow sheet ERIK has been suctioning BRB secretions ) Will monitor. Addendum: 05/27/17 at 0147 by GINI BENAVIDEZ RN Amended: Links added. Addendum: 05/27/17 at 0151 by GINI BENAVIDEZ RN Amended: Links added.
[2017-05-26] MEDS: IV NS 1000 ML 1,000 ML IV PRN (21:57)
--- NOTE | 2017-05-26 22:00 | NUR ---
Spoke to Pricila Ochoa NP re: BRB secretions from ETT; oral secretions clear thick. Order received. Spoke to Pricila Ochoa re: BRB secretions from ETT; oral secretions clear thick. Order received. Addendum: 05/27/17 at 0151 by GINI BENAVIDEZ RN Amended: Links added.
--- NOTE | 2017-05-26 22:15 | NUR ---
H/H drawn via TLC port. Levophed drip dc'd at 2200. BPs stable. Patient still gets agitated with care such as oral suctioning and repositioning. Able to bring hand up to the level of the ETT. Advised appropriately. Medicated with [place].
[2017-05-26 22:48] LABS: HEMATOCRIT 26.4 % (37-47); HEMOGLOBIN 8.7 G/DL (12.0-16.0)
--- NOTE | 2017-05-26 23:00 | NUR ---
H/H result=8.7/26.4. Patient monitored closely.
[2017-05-26] MEDS: VANCOMYCIN IV 1 G in PREMIXED 0 EACH IV SCH (23:36)
[2017-05-27] VITALS (31 sets, daily range): BP systolic 90–166; BP diastolic 32–76
[2017-05-27] MEDS: PROPOFOL 100 ML IV PRN ×4 (05:02→21:02)
[2017-05-27 05:16] LABS: BASOPHILS % (AUTO) 0.3 % (0.0-2.0); EOSINOPHILS # (AUTO) 0.3 K/uL (0.0-0.7); EOSINOPHILS % (AUTO) 4.4 % (0.0-7.0); HEMATOCRIT 24.4 % (31.2-41.9); HEMOGLOBIN 8.1 g/dL (10.9-14.3); LYMPHOCYTES % (AUTO) 26.6 % (20.5-51.5); MEAN CORPUSCULAR HEMOGLOBIN 25.8 uug (24.7-32.8); MEAN CORPUSCULAR HGB CONC 33 g/dL (32.3-35.6); MEAN CORPUSCULAR VOLUME 77.9 fL (75.5-95.3); MONOCYTES # (AUTO) 0.6 K/uL (2.0-10.0); MONOCYTES % (AUTO) 8.4 % (0.0-11.0); NEUTROPHILS # (AUTO) 4.5 K/uL (1.8-8.9); NEUTROPHILS % (AUTO) 60.3 % (38.5-71.5); PLATELET COUNT (AUTO) 389 K/uL (179-408); RED BLOOD CELL COUNT(AUTO) 3.13 MIL/uL (3.63-4.92); WHITE BLOOD COUNT (AUTO) 7.4 K/uL (3.8-11.8)
[2017-05-27] MEDS: NORMAL SALINE FLUSH 10 ML DISP.SYRIN IV SCH ×3 (05:25→21:02)
[2017-05-27 05:31] LABS: CARBON DIOXIDE 29 mmol/L (21-32); CHLORIDE 107 mmol/L (98-107); CREATININE 0.6 mg/dL (0.6-1.3); GLUCOSE 132 mg/dL (74-106); MAGNESIUM 1.9 mg/dL (1.8-2.4); PHOSPHOROUS 3.1 mg/dL (2.5-4.9); POTASSIUM 3.3 mmol/L (3.5-5.1); UREA NITROGEN, BLOOD 20 mg/dL (7-18)
--- NOTE | 2017-05-27 06:00 | NUR ---
No neuro changes. BP remains stable off Levophed drip.
[2017-05-27] MEDS: MEROPENEM 0.5 G in IV NORMAL SALINE 50 ML IV SCH (08:42)
[2017-05-27] MEDS: NUTREN 1.5 1000ML BAG GT PRN (08:46)
[2017-05-27] MEDS: Z GUARD REMEDY PASTE 57 GM TUBE TOP SCH ×2 (08:47→21:01)
[2017-05-27] MEDS ORDERED: ENOXAPARIN SODIUM 40 MG/0.4 ML DISP.SYRIN SQ SCH (09:00)
[2017-05-27 09:35] LABS: ABG BASE EXCESS 4.8 mmol/L; ABG HCO3 28.6 mmol/L; ABG PCO2 38.8 mmHg (35.0-45.0); ABG PH 7.485 (7.350-7.450); ABG PO2 92.5 mmHg (75.0-100.0); ABG SITE RIGHT RADIAL; ABG TOTAL HEMOGLOBIN 9.6 G/dL (12.0-16.0); COHb 1.2 % (0.5-1.5); MetHb 0.5 % (0.0-1.5); O2Hb 95.5 % (94.0-97.0); VENT MODE VENT - A/C; VT, ABG 500 mL
--- NOTE | 2017-05-27 10:00 | NUR ---
Dr. Fernando in the unit to examine patient, full report given.
--- NOTE | 2017-05-27 10:30 | NUR ---
DR. Damon in the unit to examine patient; full report given orders received.
[2017-05-27] MEDS: IV NS 1000 ML 1,000 ML IV PRN ×2 (11:56→23:30)
[2017-05-27] MEDS: HYDROCODONE/APAP 5-325MG TABLET PO PRN ×2 (12:00→21:58)
--- NOTE | 2017-05-27 12:45 | NUR ---
A call from lab to Back Order Clerk to report VRE in the urine notified.
[2017-05-27] MEDS ORDERED: POTASSIUM CHLORIDE 20 MEQ POWDER PACKET PO ONE (14:45)
--- NOTE | 2017-05-27 15:40 | NUR ---
PT REMAINS ON FLANAGAN VENT, SETTINGS AC 14, Vt 500, +5, 30% FIO2. 7.0 ETT IS PATENT AND SECURED WITH ANCHOR FAST. NO SOB, BUT CONTINUES TO HAVE SMALL AMOUNT OF BLOODY TINGED SECRETIONS. HME CHANGED BVM AT BEDSIDE. ALARMS ARE ON AND AUDIBLE. WILL CONTINUE TO MONITOR.
--- NOTE | 2017-05-27 15:51 | NUR ---
Clinical Pharmacy Note: Vancomycin Dosing per Pharmacy Subjective: Vancomycin IV to continue on this 87 yo female patient for pna. Objective: ht 5' 2'' wt 135 lb BUN 20/Scr 0.6 WBC 7.4 Temperature 98.8 resp culture + MRSA Assessment/Plan: Will change vancomycin 1000mg IVPB Q31hr to q23hrs due to improved renal function(2nd dose tonight at 2300) Will draw a vancomycin trough level prior to the 4th dose of vancomycin (not ordered yet) for expected trough around 15.. Will monitor renal function and adjust vancomycin dose, if needed, should renal function change significantly. Will follow daily.
[2017-05-27] MEDS ORDERED: MEROPENEM 0.5 G in IV NORMAL SALINE 50 ML IV SCH (16:00)
--- NOTE | 2017-05-27 19:30 | NUR ---
Seen and evaluated by Marcia Cruz, new order noted for new antibiotic regimen.
--- NOTE | 2017-05-27 19:35 | NUR ---
Pt received on Ocampo vent with the following settings of AC 14, VT 500, Peep +5, FiO2 30%. Pt is orally intubated with a 7.0 ETT, secured approximately at 21cm at the lip with [place] Fast. No signs of respiratory distress noted at this time, pt appears to be tolerating vent settings well. Suctioned pt with moderate amount of blood-tinged secretions, RN aware. Ambu-bag at bedside. Vent alarms functioning and audible. Will continue to monitor pt throughout shift.
[2017-05-27] MEDS: LEVOFLOXACIN 500 MG TABLET PO SCH (19:53)
--- NOTE | 2017-05-27 20:00 | NUR ---
Remains intubated on vent. Comfortable on current vent settings. ETT secretions remain bloody; gentle suctioning observed. Sedated on Diprivan. Pt does awaken spontaneously, moves all ext. weakly. Does not follow commands. Tube feedings well tolerated. HOB up at all times. Aspiration precautions observed. IVs infusing via right jugular IV site. Nursing comfort measures observed at all times. Please see CCU flowsheet for full assessment and clinical data. Contact isolation maintained at all times.
[2017-05-27] MEDS: LINEZOLID 600 MG TABLET PO SCH (21:01)
[2017-05-27] MEDS ORDERED: VANCOMYCIN IV 1 G in PREMIXED 0 EACH IV SCH (23:00)
[2017-05-28] VITALS (31 sets, daily range): BP systolic 138–184; BP diastolic 54–132
[2017-05-28] MEDS: PROPOFOL 100 ML IV PRN ×2 (02:18→07:11)
[2017-05-28] MEDS: NORMAL SALINE FLUSH 10 ML DISP.SYRIN IV SCH ×3 (05:43→21:27)
[2017-05-28] MEDS: Z GUARD REMEDY PASTE 57 GM TUBE TOP PRN (05:45)
[2017-05-28 05:53] LABS: BASOPHILS # (AUTO) 0.1 K/uL (0.0-8.0); BASOPHILS % (AUTO) 1.3 % (0.0-2.0); EOSINOPHILS # (AUTO) 0.3 K/uL (0.0-0.7); EOSINOPHILS % (AUTO) 3.9 % (0.0-7.0); HEMATOCRIT 23.2 % (31.2-41.9); HEMOGLOBIN 7.7 g/dL (10.9-14.3); LYMPHOCYTES # (AUTO) 1.6 K/uL (20.0-40.0); LYMPHOCYTES % (AUTO) 23.1 % (20.5-51.5); MEAN CORPUSCULAR HEMOGLOBIN 26.3 uug (24.7-32.8); MEAN CORPUSCULAR HGB CONC 33 g/dL (32.3-35.6); MEAN CORPUSCULAR VOLUME 78.7 fL (75.5-95.3); MONOCYTES # (AUTO) 0.7 K/uL (2.0-10.0); MONOCYTES % (AUTO) 9.7 % (0.0-11.0); NEUTROPHILS # (AUTO) 4.2 K/uL (1.8-8.9); PLATELET COUNT (AUTO) 376 K/uL (179-408); RED BLOOD CELL COUNT(AUTO) 2.95 MIL/uL (3.63-4.92); WHITE BLOOD COUNT (AUTO) 6.8 K/uL (3.8-11.8)
--- NOTE | 2017-05-28 06:00 | NUR ---
Uneventful night. Episodes of restlessness, anxiety relieved by reassurance/repositioning. Safety precautions observed at all times. Please see CCU flowsheet for trends and clinical data.
[2017-05-28 06:08] LABS: CARBON DIOXIDE 27 mmol/L (21-32); CHLORIDE 112 mmol/L (98-107); CREATININE 0.5 mg/dL (0.6-1.3); GLUCOSE 107 mg/dL (74-106); MAGNESIUM 1.8 mg/dL (1.8-2.4); PHOSPHOROUS 2.8 mg/dL (2.5-4.9); POTASSIUM 3.7 mmol/L (3.5-5.1); UREA NITROGEN, BLOOD 16 mg/dL (7-18)
--- NOTE | 2017-05-28 07:48 | NUR ---
Pt received on Ocampo vent, settings of AC 14, VT 500, Peep +5, FiO2 30%. Pt is orally intubated with a 7.0 ETT, secured approx @ 21cm lip line with ETT roberson. No signs of respiratory distress noted at this time, pt appears to be tolerating vent settings well. lavage/sxn'd pt with moderate amount of blood-tinged secretions, RN aware. BVM at bedside. Vent alarms audible, checked and reset. Weaning for this AM CPAP/PS8 with abg's to be drawn in 1hr.
[2017-05-28] MEDS: Z GUARD REMEDY PASTE 57 GM TUBE TOP SCH ×2 (08:11→20:15)
[2017-05-28] MEDS: LINEZOLID 600 MG TABLET PO SCH ×2 (08:11→20:14)
--- NOTE | 2017-05-28 08:35 | NUR ---
Dr. Brewer in the unit to examine patient; full report given, also informed that patient is the weaning mode at this time. Orders to decrease IV fluids to 50cc/hr. received.
--- NOTE | 2017-05-28 09:00 | NUR ---
Dr. Fernando in the unit to examine patient; informed and aware of weaning in progress, as well as of high blood pressure.
[2017-05-28 09:20] LABS: ABG BASE EXCESS -0.1 mmol/L; ABG HCO3 23.1 mmol/L; ABG PCO2 31.7 mmHg (35.0-45.0); ABG PO2 111.7 mmHg (75.0-100.0); ABG SITE RIGHT RADIAL; ABG TOTAL HEMOGLOBIN 8.9 G/dL (12.0-16.0); COHb 1.3 % (0.5-1.5); CPAP,BG 0 cmH20; MetHb 0.4 % (0.0-1.5); O2Hb 96.7 % (94.0-97.0); VENT MODE VENT - CPAP/PS8
[2017-05-28 09:27] LABS: BAND % (MANUAL) 3 % (0-10); EOSINOPHILS % (MANUAL) 3 % (0-8); LYMPHOCYTES % (MANUAL) 22 % (20-40); MONOCYTES % (MANUAL) 15 % (2-10); NEUTROPHILS % (MANUAL) 57 % (42-75)
[2017-05-28] MEDS: IV NS 1000 ML 1,000 ML IV PRN (10:03)
[2017-05-28] MEDS: NUTREN 1.5 1000ML BAG GT PRN (10:27)
[2017-05-28] MEDS: hydrALAZINE HCL 20 MG/1 ML VIAL IV PRN ×3 (10:29→23:21)
[2017-05-28] MEDS ORDERED: ALBUTEROL SULFATE 1.25 MG/3 ML NEBU NEB PRN (11:15)
--- NOTE | 2017-05-28 11:15 | NUR ---
Dr. Damon pulmonary services in the unit to examine patient, and after assessment, orders to extubate patient received. informed that patient still on propofol and orders to turn it off completely received. Addendum: 05/28/17 at 1827 by ANA OLEARY RN And Patient [id number] and follows commands.
[2017-05-28] MEDS ORDERED: DC PROPOFOL ONCE EXTUBATED XX PRN (11:25)
--- NOTE | 2017-05-28 11:25 | NUR ---
Following weaning and abg results. Dr. Damon with order to extubate pt. pt extubated and placed on NC 3L.
--- NOTE | 2017-05-28 11:25 | NUR ---
RT Brody informed patient extubated and placed on Nasal canula 3 liters. patient coughing saturation of 98%. RR in the high 20's. Dr. Damon in the unit
--- NOTE | 2017-05-28 18:15 | NUR ---
[facility] in to assess patient.
[2017-05-28] MEDS: LEVOFLOXACIN 500 MG TABLET PO SCH (19:58)
--- NOTE | 2017-05-28 20:00 | NUR ---
Awake, alert, follows commands. Extubated this AM and doing well on O2 nasal cannula. Some anxiety and restlessness noted. Safety and fall precautions observed at all times. Frequent soft stools noted, kept clean and comfortable. 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 Nursing comfort measures maintained. Encouraged to rest and sleep. Please see CCU flowsheet for full assessment and clinical data.
[2017-05-28] MEDS: LACTOBACILLUS RHAMNOSUS GG 1 EACH CAPSULE GT SCH (20:14)
[2017-05-29] VITALS (24 sets, daily range): BP systolic 126–177; BP diastolic 52–75
[2017-05-29 05:21] LABS: BASOPHILS # (AUTO) 0.2 K/uL (0.0-8.0); BASOPHILS % (AUTO) 1.7 % (0.0-2.0); EOSINOPHILS # (AUTO) 0.1 K/uL (0.0-0.7); EOSINOPHILS % (AUTO) 1.1 % (0.0-7.0); HEMOGLOBIN 9.1 G/DL (12.0-16.0); LYMPHOCYTES # (AUTO) 1.7 K/UL (0.8-4.8); LYMPHOCYTES % (AUTO) 15.4 % (20.5-51.5); MEAN CORPUSCULAR HEMOGLOBIN 25.9 UUG (27.0-31.0); MEAN CORPUSCULAR HGB CONC 33 g/dL (32.0-37.0); MEAN CORPUSCULAR VOLUME 79.4 FL (81.0-99.0); MONOCYTES # (AUTO) 0.6 K/UL (0.1-1.30); MONOCYTES % (AUTO) 5.8 % (0.0-11.0); NEUTROPHILS # (AUTO) 8.3 K/UL (1.8-8.9); PLATELET COUNT (AUTO) 557 K/UL (150-450); RED BLOOD CELL COUNT(AUTO) 3.52 MIL/UL (4.2-5.4); WHITE BLOOD COUNT (AUTO) 10.9 K/UL (4.0-11.2)
[2017-05-29] MEDS: NORMAL SALINE FLUSH 10 ML DISP.SYRIN IV SCH ×3 (05:28→21:37)
[2017-05-29] MEDS: IV NS 1000 ML 1,000 ML IV PRN (05:29)
[2017-05-29] MEDS: Z GUARD REMEDY PASTE 57 GM TUBE TOP PRN (05:36)
[2017-05-29] MEDS: hydrALAZINE HCL 20 MG/1 ML VIAL IV PRN ×3 (05:36→23:03)
[2017-05-29 06:00] LABS: CARBON DIOXIDE 26 mmol/L (21-32); CHLORIDE 113 mmol/L (98-107); CREATININE 0.6 mg/dL (0.6-1.3); GLUCOSE 136 mg/dL (74-106); MAGNESIUM 1.8 mg/dL (1.8-2.4); PHOSPHOROUS 2.6 mg/dL (2.5-4.9); POTASSIUM 3.2 mmol/L (3.5-5.1); UREA NITROGEN, BLOOD 14 mg/dL (7-18)
--- NOTE | 2017-05-29 06:00 | NUR ---
Had a good night sleep. Required 2 doses IV Lopressor this shift to keep SBP below 160. No further BMs since HS. Tube feeding residuals remain minimal; off feeding from [id number] daily. Resp easy and regular with adequate sats. Please see CCU flowsheet for trends and clinical data.
--- NOTE | 2017-05-29 07:57 | NUR ---
Pt.was seen by ANIBAL BROWN MD with new orders.
[2017-05-29] MEDS: LACTOBACILLUS RHAMNOSUS GG 1 EACH CAPSULE GT SCH ×2 (08:18→20:12)
[2017-05-29] MEDS: AMLODIPINE 5 MG TABLET PO SCH (08:19)
[2017-05-29] MEDS: Z GUARD REMEDY PASTE 57 GM TUBE TOP SCH ×2 (08:19→20:39)
[2017-05-29] MEDS: LINEZOLID 600 MG TABLET PO SCH ×2 (08:20→20:12)
[2017-05-29 09:40] LABS: ABG BASE EXCESS 2.1 mmol/L; ABG HCO3 24.4 mmol/L; ABG PCO2 30.1 mmHg (35.0-45.0); ABG PH 7.527 (7.350-7.450); ABG PO2 82.9 mmHg (75.0-100.0); ABG SITE RIGHT RADIAL; ABG TOTAL HEMOGLOBIN 10.3 G/dL (12.0-16.0); MetHb 0.2 % (0.0-1.5); O2Hb 95.8 % (94.0-97.0); VENT MODE Nasal Cannula
[2017-05-29 09:50] LABS: BAND % (MANUAL) 2 % (0-10); BASOPHILS % (MANUAL) 1 % (0-2); EOSINOPHILS % (MANUAL) 1 % (0-8); LYMPHOCYTES % (MANUAL) 19 % (20-40); METAMYELOCYTES % 1 % (0-1); MONOCYTES % (MANUAL) 9 % (2-10); NEUTROPHILS % (MANUAL) 67 % (42-75)
--- NOTE | 2017-05-29 10:45 | NUR ---
Pt.was seen by with new orders.
--- NOTE | 2017-05-29 11:01 | NUR ---
Pt.was seen by with new orders.
[2017-05-29] MEDS: FUROSEMIDE 20 MG/2 ML VIAL IV SCH (11:07)
[2017-05-29] MEDS: POTASSIUM CHLORIDE 20 MEQ POWDER PACKET GT SCH ×3 (11:48→20:12)
--- NOTE | 2017-05-29 15:00 | NUR ---
Pt.watching TV,no s/s of distress ,denies pain @ time.
--- NOTE | 2017-05-29 18:30 | NUR ---
Pt.was seen by SPLICER HELPERDaly.
--- NOTE | 2017-05-29 19:30 | NUR ---
tolerating o2 nasal cannula at 3l/min no sob . rr 20 saturation 98% ,with non production occasional cough. Addendum: 05/29/17 at 2313 by IZABEL WEST RN Amended: Links added.
--- NOTE | 2017-05-29 20:00 | NUR ---
tolerating tube feedings via the peg .on nutrient at 40 ml hr.due medication given via peg and flushed with water. hob up . aspiration precaution observed , Addendum: 05/29/17 at 2316 by ZIABEL WEST RN Amended: Links added.
[2017-05-29] MEDS: LEVOFLOXACIN 500 MG TABLET PO SCH (20:12)
--- NOTE | 2017-05-29 22:00 | NUR ---
no new skin breakdown noted . turned and reposition patient . elevated upper and lower extremities with pillows and back offloaded with pillow . scsd used and heels off bed . Addendum: 05/29/17 at 2317 by IZABEL WEST RN Amended: Links added.
[2017-05-29] MEDS: HYDROCODONE/APAP 5-325MG TABLET PO PRN (23:33)
[2017-05-30] VITALS (24 sets, daily range): BP systolic 130–174; BP diastolic 45–79
[2017-05-30] MEDS: hydrALAZINE HCL 20 MG/1 ML VIAL IV PRN ×3 (03:57→19:23)
--- NOTE | 2017-05-30 05:00 | NUR ---
am care done and changed soiled linens and gown patient had moderate bowel movement loose ,soft greenish in color ,skin care done .Mejia care done and oral care done . uneventful night . medicated with norco pain medicated . prn Apresoline for sbp > mm/hg .continue to monitor vital signs and levels of pain .
[2017-05-30 05:16] LABS: BASOPHILS # (AUTO) 0.1 K/uL (0.0-8.0); BASOPHILS % (AUTO) 1.1 % (0.0-2.0); EOSINOPHILS # (AUTO) 0.1 K/uL (0.0-0.7); EOSINOPHILS % (AUTO) 1.1 % (0.0-7.0); HEMATOCRIT 31.7 % (31.2-41.9); HEMOGLOBIN 10.3 g/dL (10.9-14.3); LYMPHOCYTES # (AUTO) 2.4 K/uL (20.0-40.0); MEAN CORPUSCULAR HEMOGLOBIN 25.4 uug (24.7-32.8); MEAN CORPUSCULAR HGB CONC 32 g/dL (32.3-35.6); MEAN CORPUSCULAR VOLUME 78.6 fL (75.5-95.3); MONOCYTES # (AUTO) 0.8 K/uL (2.0-10.0); MONOCYTES % (AUTO) 6.3 % (0.0-11.0); NEUTROPHILS # (AUTO) 9.3 K/uL (1.8-8.9); NEUTROPHILS % (AUTO) 72.5 % (38.5-71.5); PLATELET COUNT (AUTO) 523 K/uL (179-408); RED BLOOD CELL COUNT(AUTO) 4.04 MIL/uL (3.63-4.92); WHITE BLOOD COUNT (AUTO) 12.9 K/uL (3.8-11.8)
[2017-05-30 05:28] LABS: CARBON DIOXIDE 26 mmol/L (21-32); CHLORIDE 110 mmol/L (98-107); CREATININE 0.6 mg/dL (0.6-1.3); GLUCOSE 163 mg/dL (74-106); MAGNESIUM 2.1 mg/dL (1.8-2.4); PHOSPHOROUS 2.6 mg/dL (2.5-4.9); POTASSIUM 3.8 mmol/L (3.5-5.1); UREA NITROGEN, BLOOD 18 mg/dL (7-18)
[2017-05-30] MEDS: NORMAL SALINE FLUSH 10 ML DISP.SYRIN IV SCH ×3 (05:41→21:04)
[2017-05-30 06:12] LABS: BAND % (MANUAL) 2 % (0-10); EOSINOPHILS % (MANUAL) 1 % (0-8); LYMPHOCYTES % (MANUAL) 15 % (20-40); METAMYELOCYTES % 2 % (0-1); MONOCYTES % (MANUAL) 6 % (2-10); MYELOCYTES % 2 % (0-0); NEUTROPHILS % (MANUAL) 72 % (42-75)
[2017-05-30] MEDS: FUROSEMIDE 20 MG/2 ML VIAL IV SCH (08:37)
[2017-05-30] MEDS: AMLODIPINE 5 MG TABLET PO SCH (08:38)
[2017-05-30] MEDS: LACTOBACILLUS RHAMNOSUS GG 1 EACH CAPSULE GT SCH ×2 (08:39→20:21)
[2017-05-30] MEDS: LINEZOLID 600 MG TABLET PO SCH ×2 (08:40→20:21)
[2017-05-30] MEDS: Z GUARD REMEDY PASTE 57 GM TUBE TOP SCH ×2 (08:41→20:22)
[2017-05-30 09:17] LABS: ABG BASE EXCESS 2.6 mmol/L; ABG HCO3 23.9 mmol/L; ABG PCO2 26.5 mmHg (35.0-45.0); ABG PH 7.573 (7.350-7.450); ABG PO2 102.5 mmHg (75.0-100.0); ABG SITE RIGHT RADIAL; ABG TOTAL HEMOGLOBIN 10.5 G/dL (12.0-16.0); COHb 1.5 % (0.5-1.5); MetHb 0.3 % (0.0-1.5); O2Hb 96.6 % (94.0-97.0); VENT MODE Nasal Cannula
--- NOTE | 2017-05-30 10:00 | NUR ---
seen by dr lissette md aware of tachycardia/hypertension Addendum: 05/30/17 at 1012 by MARVEL FINNEY RN Amended: Links added.
--- NOTE | 2017-05-30 10:10 | NUR ---
seen by dr Clark. orders received Addendum: 05/30/17 at 1011 by MARVEL FINNEY RN Amended: Anastasiia added. Addendum: 05/30/17 at 1012 by MARVEL FINNEY RN Amended: Anastasiia justice.
[2017-05-30] MEDS: ATENOLOL 50 MG TABLET PO SCH (11:27)
--- NOTE | 2017-05-30 12:35 | NUR ---
medicated for hypertension Addendum: 05/30/17 at 1235 by MARVEL FINNEY RN Amended: Links added.
[2017-05-30] MEDS: IV NORMAL SALINE 250 ML IV PRN (18:14)
--- NOTE | 2017-05-30 19:13 | NUR ---
LINDA report given to Braeden VALENCIA. Addendum: 05/30/17 at 1913 by MARVEL FINNEY RN Amended: Links added.
--- NOTE | 2017-05-30 19:30 | NUR ---
patient bp was high 174/66 given prn antihypertensive prn medication and continue to monitor vitals and s/s of pain and discomfort. Addendum: 05/30/17 at 2101 by IZABEL WEST RN Amended: Links added.
--- NOTE | 2017-05-30 19:30 | NUR ---
tolerating 02 nasal cannula at 1 liter /min . saturation 95% and rr 18. with non productive cough . hob up aspiration precaution observed.advised patient to cough and used the Willie Addendum: 05/30/17 at 2007 by IZABEL WEST RN Amended: Links added.
[2017-05-30] MEDS: LEVOFLOXACIN 500 MG TABLET PO SCH (19:39)
[2017-05-31] VITALS (13 sets, daily range): BP systolic 132–176; BP diastolic 40–81
--- NOTE | 2017-05-31 | NUR ---
prn bp medication Apresoline given for sbp >160 mm/hg .continue to monitor vital signs and s/s of pain . Addendum: 05/31/17 at 9 by IZABEL WEST RN Amended: Links added. Addendum: 05/31/17 at 238 by IZABEL WEST RN Amended: Links added.
[2017-05-31] MEDS: hydrALAZINE HCL 20 MG/1 ML VIAL IV PRN ×3 (00:53→20:34)
[2017-05-31 05:27] LABS: BASOPHILS # (AUTO) 0.2 K/uL (0.0-8.0); BASOPHILS % (AUTO) 1.4 % (0.0-2.0); EOSINOPHILS # (AUTO) 0.1 K/uL (0.0-0.7); EOSINOPHILS % (AUTO) 0.8 % (0.0-7.0); HEMATOCRIT 29.4 % (31.2-41.9); HEMOGLOBIN 9.6 g/dL (10.9-14.3); LYMPHOCYTES # (AUTO) 2.2 K/uL (20.0-40.0); LYMPHOCYTES % (AUTO) 17.8 % (20.5-51.5); MEAN CORPUSCULAR HEMOGLOBIN 25.7 uug (24.7-32.8); MEAN CORPUSCULAR HGB CONC 33 g/dL (32.3-35.6); MEAN CORPUSCULAR VOLUME 78.9 fL (75.5-95.3); MONOCYTES # (AUTO) 0.9 K/uL (2.0-10.0); MONOCYTES % (AUTO) 7.1 % (0.0-11.0); NEUTROPHILS # (AUTO) 8.8 K/uL (1.8-8.9); NEUTROPHILS % (AUTO) 72.9 % (38.5-71.5); PLATELET COUNT (AUTO) 492 K/uL (179-408); RED BLOOD CELL COUNT(AUTO) 3.72 MIL/uL (3.63-4.92); WHITE BLOOD COUNT (AUTO) 12.1 K/uL (3.8-11.8)
[2017-05-31 05:36] LABS: CARBON DIOXIDE 30 mmol/L (21-32); CHLORIDE 112 mmol/L (98-107); CREATININE 0.7 mg/dL (0.6-1.3); GLUCOSE 174 mg/dL (74-106); POTASSIUM 3.4 mmol/L (3.5-5.1); UREA NITROGEN, BLOOD 29 mg/dL (7-18)
--- NOTE | 2017-05-31 06:00 | NUR ---
am care done ,changed soiled linens and gown and turned and reposition elevated upper and lower extremities with pillows .hydralazine given prn for sbp >160 mm/hg . place patient on room air desaturated 88% and placed patient back to 02 nasal cannula at 1 liter /min . hob up .
[2017-05-31] MEDS: IV NORMAL SALINE 250 ML IV PRN ×2 (06:06→20:35)
[2017-05-31] MEDS: NORMAL SALINE FLUSH 10 ML DISP.SYRIN IV SCH ×3 (06:06→21:52)
[2017-05-31 07:42] LABS: BAND % (MANUAL) 2 % (0-10); EOSINOPHILS % (MANUAL) 2 % (0-8); LYMPHOCYTES % (MANUAL) 18 % (20-40); METAMYELOCYTES % 1 % (0-1); MONOCYTES % (MANUAL) 6 % (2-10); MYELOCYTES % 1 % (0-0); NEUTROPHILS % (MANUAL) 70 % (42-75)
[2017-05-31 09:18] LABS: ABG BASE EXCESS 4.3 mmol/L; ABG HCO3 26.9 mmol/L; ABG PCO2 32.6 mmHg (35.0-45.0); ABG PH 7.534 (7.350-7.450); ABG PO2 73.6 mmHg (75.0-100.0); ABG SITE RIGHT RADIAL; ABG TOTAL HEMOGLOBIN 10.2 G/dL (12.0-16.0); COHb 1.2 % (0.5-1.5); MetHb 0.2 % (0.0-1.5); O2Hb 94.1 % (94.0-97.0); VENT MODE Nasal Cannula
[2017-05-31] MEDS: LINEZOLID 600 MG TABLET PO SCH ×2 (09:45→20:34)
[2017-05-31] MEDS: HYDROCODONE/APAP 5-325MG TABLET PO PRN ×2 (09:45→23:58)
[2017-05-31] MEDS: LACTOBACILLUS RHAMNOSUS GG 1 EACH CAPSULE GT SCH ×2 (09:45→20:34)
[2017-05-31] MEDS: AMLODIPINE 5 MG TABLET PO SCH (09:46)
[2017-05-31] MEDS: ATENOLOL 50 MG TABLET PO SCH (09:46)
[2017-05-31] MEDS: Z GUARD REMEDY PASTE 57 GM TUBE TOP SCH ×2 (09:48→21:28)
[2017-05-31] MEDS ORDERED: POTASSIUM CHLORIDE 20 MEQ POWDER PACKET GT ONE (12:00)
--- NOTE | 2017-05-31 13:10 | NUR ---
RECEIVED PATIENT FROM CCU, PATIENT IS IN NO EVIDENT DISTRESS AT THIS TIME. TRANSFER WAS TOLERATED, AND VIALS WNL. BED IN LOW POSITION, SIDE RAILS UP X2.
[2017-05-31] MEDS: NUTREN 1.5 1000ML BAG GT PRN (13:59)
--- NOTE | 2017-05-31 17:10 | NUR ---
PATIENT IN BED, TOLERATING TUBE FEEDING WELL, NO EVIDENCE OF DISTRESS NOTED, BED IN LOW POSITION, SIDE RAILS UP X2. NO SHORTNESS OF BREATH NOTED. TRIPLE LUMEN HAS ONLY TWO FLUSHING LUMENS.
[2017-05-31] MEDS: LEVOFLOXACIN 500 MG TABLET PO SCH (18:40)
[2017-06-01 00:01] VITALS: BP 154/49
[2017-06-01 04:27] VITALS: BP 177/73
--- NOTE | 2017-06-01 05:44 | NUR ---
NSG: Pt alert but confused. no acute distress noted. denies shortness of breathe. however, c/o of generalized pain. medicated with 1 tab norco. tolerated TF well. turned off TF at 0400. GT patent. tele d/c by Dr. Venegas. repositioned. kept clean and dry. maintain contact precaution.
[2017-06-01] MEDS: hydrALAZINE HCL 25 MG TABLET PO PRN (06:01)
[2017-06-01] MEDS: NORMAL SALINE FLUSH 10 ML DISP.SYRIN IV SCH ×3 (06:02→22:08)
[2017-06-01] MEDS: LEVOTHYROXINE SODIUM 200 MCG TABLET PO SCH (06:02)
[2017-06-01 06:54] LABS: CARBON DIOXIDE 25 mmol/L (21-32); CHLORIDE 106 mmol/L (98-107); CREATININE 0.7 mg/dL (0.6-1.3); GLUCOSE 129 mg/dL (74-106); POTASSIUM 3.2 mmol/L (3.5-5.1); UREA NITROGEN, BLOOD 29 mg/dL (7-18)
--- NOTE | 2017-06-01 07:15 | NUR ---
Received report from overnight caregiver nurse. Patient in bed sleeping no evidence of distress noted, bed in low position, side rails up x2.
[2017-06-01] MEDS ORDERED: AMLODIPINE 5 MG TABLET PO SCH (09:00)
[2017-06-01] MEDS: Z GUARD REMEDY PASTE 57 GM TUBE TOP SCH ×2 (09:00→20:29)
[2017-06-01] MEDS: BENAZEPRIL HCL 10 MG TABLET PO SCH (10:10)
[2017-06-01] MEDS: AMLODIPINE 10 MG TABLET PO SCH (10:11)
[2017-06-01] MEDS: ATENOLOL 50 MG TABLET PO SCH (10:11)
[2017-06-01] MEDS: LACTOBACILLUS RHAMNOSUS GG 1 EACH CAPSULE GT SCH ×2 (10:11→20:29)
[2017-06-01] MEDS: LINEZOLID 600 MG TABLET PO SCH ×2 (10:12→20:29)
[2017-06-01] MEDS: NUTREN 1.5 1000ML BAG GT PRN (10:17)
[2017-06-01] MEDS ORDERED: POTASSIUM CHLORIDE 20 MEQ TAB.PRT.SR PO ONE (10:30)
[2017-06-01] MEDS ORDERED: POTASSIUM CHLORIDE 20 MEQ POWDER PACKET GT ONE (10:45)
[2017-06-01 11:27] VITALS: BP 157/63
[2017-06-01 15:46] VITALS: BP 155/56
--- NOTE | 2017-06-01 18:02 | NUR ---
PATIENT IS CURRENTLY IN BED, NO EVIDENCE OF DISTRESS NOTED, COMPLIANT WITH CARE. MILD COMPLAINT OF PAIN IN ABDOMINAL AREA AFTER DRESSING CHANGE OF G-TUBE. PATIENT CONTINUES TO ASK FOR ORAL GRATIFICATION DURING EACH MEAL TIME, BUT ONLY ONE MEAL IS ORDERED DAILY. DIETARY CONSULT PLACED FOR EVALUATION OF DIETARY NEEDS.
[2017-06-01] MEDS: LEVOFLOXACIN 500 MG TABLET PO SCH (18:54)
--- NOTE | 2017-06-01 20:00 | NUR ---
RECEIVED PATIENT AWAKE IN BED WITH PRIVATE CAREGIVER AT BEDSIDE. PATIENT IS A/O X3. FORGETFUL AT TIMES. DENIES PAIN OR DISCOMFORT. ON O2 2L NC SATING WELL. NO RESP. DISTRESS NOTED. F/C INTACT AND PATENT. FLEXI-SEAL INTACT. GT FEEDING INFUSING WELL. PATIENT ON AIR MATTRESS. BED ALARM ON. CALL LIGHT IN REACH. ALL NEEDS ATTENDED. WILL CONTINUE TO MONITOR.
[2017-06-01 20:53] VITALS: BP 151/56
[2017-06-02] MEDS: LORAZEPAM 2 MG/1 ML VIAL IV PRN (00:53)
--- NOTE | 2017-06-02 04:00 | NUR ---
GT FEEDING TURNED OFF AT THIS TIME ORDERED.
[2017-06-02 04:25] VITALS: BP 113/46
[2017-06-02] MEDS: NORMAL SALINE FLUSH 10 ML DISP.SYRIN IV SCH ×3 (05:39→22:00)
--- NOTE | 2017-06-02 06:00 | NUR ---
PATIENT AWAKE IN BED. A/O X2. FORGETFUL AT TIMES. DENIES PAIN. NO S/S OF PAIN OR DISCOMFORT. NO RESP. DISTRESS NOTED. GT OFF AT THIS TIME UNTIL 8AM ORDERED. REPOSITIONED TO SIDE FOR COMFORT AND PRESSURE RELIEF. PATIENT IS REFUSING TO WEAR DVT PUMPS. BED ALARM ON. CALL LIGHT IN REACH. ALL NEEDS ATTENDED. WILL CONTINUE TO MONITOR.
[2017-06-02] MEDS: LEVOTHYROXINE SODIUM 200 MCG TABLET PO SCH ×2 (06:06→09:18)
--- NOTE | 2017-06-02 08:30 | NUR ---
Received patient on bed awake, A & O x 2 with bouts of forgetfulness. Able to verbalize needs. On contact isolation. No acute distress noted. On O2 2lpm via nasal cannula. No c/o SOB. Triple lumen on the right jugular, intact and patent, NS running TKO. Gtube intact and patent, on Nutren 1.5 @ 40 ml/min, turned on at 8:00AM, HOB elevated at all times No residual noted. Mejia catheter in place and patent, urine is clear and yellow. Flexiseal in place, irrigated as needed. All comfort measures provided. Will continue to monitor closely
[2017-06-02] MEDS: LINEZOLID 600 MG TABLET PO SCH ×2 (09:18→20:30)
[2017-06-02] MEDS: ATENOLOL 50 MG TABLET PO SCH (09:21)
[2017-06-02] MEDS: AMLODIPINE 10 MG TABLET PO SCH (09:21)
[2017-06-02] MEDS: BENAZEPRIL HCL 10 MG TABLET PO SCH (09:21)
[2017-06-02] MEDS: LACTOBACILLUS RHAMNOSUS GG 1 EACH CAPSULE GT SCH ×2 (09:21→20:30)
[2017-06-02] MEDS: Z GUARD REMEDY PASTE 57 GM TUBE TOP SCH ×2 (09:22→20:30)
[2017-06-02 11:36] VITALS: BP 140/61
[2017-06-02] MEDS: NUTREN 1.5 1000ML BAG GT PRN (14:13)
[2017-06-02 15:44] VITALS: BP 148/56
--- NOTE | 2017-06-02 16:07 | NUR ---
Response to MD consult: patient wants food during all meal times (BLD) for oral gratification. Per recommendations, patient is at risk for aspiration, should be kept NPO. Patient is currently receiving 2 oz pureed meat, 2 oz starch, and 4 oz nectar thick juice every day at lunch, approved by BRANDY (see previous Nutrition Assessment note). BRANDY s/w patient and caregiver and informed them that only possible at this time to send PO diet once per day d/t risk for aspiration. Patient reports no issues with swallowing, denies any coughing while eating. Per RN, patient is tolerating TF, no issues reported. Recommend: - Continue 2 oz pureed meat, 2 oz starch, and 4 oz nectar thick juice for lunch only - Continue TF - Repeat swallow evaluation per Russel Anderson RD ext [phone] Addendum: 06/02/17 at [address] Amended: Links added.
[2017-06-02] MEDS: HYDROCODONE/APAP 5-325MG TABLET PO PRN ×2 (16:17→20:46)
--- NOTE | 2017-06-02 20:00 | NUR ---
RECEIVED PATIENT AWAKE IN BED WITH CAREGIVER AT BEDSIDE. PATIENT IS A/O X2. C/O GENERALIZED PAIN. VSS. TRIPLE LUMEN CENTRAL CATH, NOTED TO RIGHT JUGULAR WITH TKO. F/C INTACT AND DRAINING YELLOW URINE AND FLEXI-SEAL INTACT. PATIENT IS ON AIR MATTRESS. BED ALARM ON. CALL LIGHT IN REACH. ALL NEEDS ATTENDED. WILL CONTINUE TO MONITOR.
[2017-06-02 20:15] VITALS: BP 128/46
[2017-06-02] MEDS: LEVOFLOXACIN 500 MG TABLET PO SCH (20:30)
--- NOTE | 2017-06-02 20:45 | NUR ---
PATIENT C/O PAIN, GENERALIZED. PATIENT GIVEN NORCO 1 TAB PO PRN FOR PAIN VIA GT. VSS. CALL LIGHT IN REACH. ALL NEEDS ATTENDED. WILL CONTINUE TO MONITOR.
[2017-06-03 04:50] VITALS: BP 151/58
[2017-06-03] MEDS: NORMAL SALINE FLUSH 10 ML DISP.SYRIN IV SCH ×3 (05:51→22:00)
[2017-06-03] MEDS: hydrALAZINE HCL 25 MG TABLET PO PRN ×2 (06:00→20:45)
[2017-06-03] MEDS: LEVOTHYROXINE SODIUM 200 MCG TABLET PO SCH (06:00)
[2017-06-03] MEDS: HYDROCODONE/APAP 5-325MG TABLET PO PRN ×2 (06:04→11:45)
--- NOTE | 2017-06-03 06:05 | NUR ---
PATIENT GIVEN NORCO 1 TAB PO PRN FOR PAIN AND HYDRALAZINE 25MG PO PRN FOR ELEVATED BP. WILL CONTINUE TO MONITOR AND ASSESS.
[2017-06-03] MEDS: LACTOBACILLUS RHAMNOSUS GG 1 EACH CAPSULE GT SCH ×2 (08:28→20:44)
[2017-06-03] MEDS: BENAZEPRIL HCL 10 MG TABLET PO SCH (08:29)
[2017-06-03] MEDS: AMLODIPINE 10 MG TABLET PO SCH (08:29)
[2017-06-03] MEDS: ATENOLOL 50 MG TABLET PO SCH (08:30)
--- NOTE | 2017-06-03 08:30 | NUR ---
AWAKE ,ORTX2 COOPERATE WELL NO SOB OR PAIN CONTINUE GT FEEDING SUSIE WELL NO N/V ON FALL /ASPIRATION PRECAUTION BED ALARM ON AND CALL LIGHT IN REACH AND INSTRUCTION TO CALL WHEN NEEDED
[2017-06-03] MEDS: Z GUARD REMEDY PASTE 57 GM TUBE TOP SCH ×2 (08:31→20:45)
[2017-06-03 11:56] VITALS: BP 134/45
[2017-06-03 15:45] VITALS: BP 115/56
--- NOTE | 2017-06-03 18:37 | NUR ---
PT ALERT, ORIENTED X2. NO COMPLAIN OF PAIN. NO SOB. GT SITE CLEAN AND TX APPLIED PER MD ORDER. SAFETY MEASURE PROVIDED. CALL LIGHT WITHIN REACH.
--- NOTE | 2017-06-03 20:00 | NUR ---
RECEIVED PATIENT AWAKE IN BED WITH CAREGIVER AT BEDSIDE. A/O X2, FOLLOWS DIRECTIONS BUT VERY FORGETFUL AND NEEDS REINFORCEMENT. NO C/O PAIN AT THIS TIME. ON O2 2L NC SATING WELL. NO RESP. DISTRESS NOTED. TRIPLE LUMEN CENTRAL CATH NOTED TO RIGHT JUGULAR WITH TKO INFUSING. F/C INTACT AND PATENT. FLEXI-SEAL INTACT AND LOOSE STOOL NOTED IN BAG. ON CONTACT ISOLATION. ON AIR MATTRESS. BED ALARM ON. CALL LIGHT IN REACH. ALL NEEDS ATTENDED. WILL CONTINUE TO MONITOR.
[2017-06-03 20:30] VITALS: BP 158/51
--- NOTE | 2017-06-03 20:35 | NUR ---
PATIENT GIVEN HYDRALAZINE 25MG VIA GT FOR BP 158/51 ORDERED PRN FOR SBP >150. ALL OTHER VSS. GT INFUSING WELL. HOB ELEVATED. BED ALARM ON. WILL CONTINUE TO MONITOR.
--- NOTE | 2017-06-03 22:00 | NUR ---
PATIENT HAS A CONTINUOUS TKO GOING TO TRIPLE LUMEN CATHETER TO KEEP LINE OPEN.
[2017-06-04 05:10] VITALS: BP 136/95
[2017-06-04] MEDS: HYDROCODONE/APAP 5-325MG TABLET PO PRN (05:13)
--- NOTE | 2017-06-04 05:15 | NUR ---
PATIENT AWAKE C/O PAIN. PATIENT GIVEN NORCO 1 TAB PO PRN VIA GT. ALL NEEDS ATTENDED. WILL CONTINUE TO MONITOR AND ASSESS.
[2017-06-04] MEDS: NORMAL SALINE FLUSH 10 ML DISP.SYRIN IV SCH ×2 (06:00→14:26)
[2017-06-04] MEDS: LEVOTHYROXINE SODIUM 200 MCG TABLET PO SCH (06:10)
--- NOTE | 2017-06-04 06:29 | NUR ---
PATIENT ASLEEP IN BED. NO S/S OF PAIN/DISCOMFORT. NO FACIAL GRIMACE NOTED. GT FEEDING OFF AT THIS TIME UNTIL 8AM ORDERED. BED ALARM ON. PATIENT SLEPT WELL THROUGHOUT THE NIGHT. CALL LIGHT IN REACH. ALL NEEDS ATTENDED. WILL CONTINUE TO MONITOR AND ASSESS. Addendum: 06/04/17 at 0632 by TRISHA HOUSTON LVN PATIENT HAS CONTINUOUS TKO INFUSING TO TRIPLE LUMEN CATHETER NOTED TO RIGHT JUGULAR TO KEEP LINE OPEN. ALL NEEDS ATTENDED.
[2017-06-04 07:02] LABS: BASOPHILS # (AUTO) 0.1 K/uL (0.0-8.0); BASOPHILS % (AUTO) 0.6 % (0.0-2.0); EOSINOPHILS # (AUTO) 0.3 K/uL (0.0-0.7); EOSINOPHILS % (AUTO) 2.3 % (0.0-7.0); HEMOGLOBIN 10.3 g/dL (10.9-14.3); LYMPHOCYTES # (AUTO) 2.6 K/uL (20.0-40.0); LYMPHOCYTES % (AUTO) 19.3 % (20.5-51.5); MEAN CORPUSCULAR HEMOGLOBIN 25.9 uug (24.7-32.8); MEAN CORPUSCULAR HGB CONC 33 g/dL (32.3-35.6); MEAN CORPUSCULAR VOLUME 78.1 fL (75.5-95.3); MONOCYTES # (AUTO) 0.8 K/uL (2.0-10.0); NEUTROPHILS # (AUTO) 9.8 K/uL (1.8-8.9); NEUTROPHILS % (AUTO) 71.8 % (38.5-71.5); PLATELET COUNT (AUTO) 382 K/uL (179-408); RED BLOOD CELL COUNT(AUTO) 3.97 MIL/uL (3.63-4.92); WHITE BLOOD COUNT (AUTO) 13.7 K/uL (3.8-11.8)
[2017-06-04 07:09] LABS: CARBON DIOXIDE 24 mmol/L (21-32); CHLORIDE 105 mmol/L (98-107); CREATININE 0.6 mg/dL (0.6-1.3); GLUCOSE 94 mg/dL (74-106); PHOSPHOROUS 3.3 mg/dL (2.5-4.9); POTASSIUM 3.5 mmol/L (3.5-5.1); UREA NITROGEN, BLOOD 18 mg/dL (7-18)
--- NOTE | 2017-06-04 07:10 | NUR ---
Received report from shift leader. Client is in bed asleep. No signs or symptoms of SOB, pain, distress or discomfort. Client is supine with HOB 30 degrees. GT feeding is off
--- NOTE | 2017-06-04 07:42 | NUR ---
chest x-ray complete
[2017-06-04] MEDS: NUTREN 1.5 1000ML BAG GT PRN (08:03)
[2017-06-04] MEDS: LACTOBACILLUS RHAMNOSUS GG 1 EACH CAPSULE GT SCH (09:02)
[2017-06-04] MEDS: BENAZEPRIL HCL 10 MG TABLET PO SCH (09:03)
[2017-06-04] MEDS: AMLODIPINE 10 MG TABLET PO SCH (09:04)
[2017-06-04] MEDS: ATENOLOL 50 MG TABLET PO SCH (09:04)
[2017-06-04] MEDS: Z GUARD REMEDY PASTE 57 GM TUBE TOP SCH (09:04)
--- NOTE | 2017-06-04 09:06 | NUR ---
Physical Therapy in progress, two PT's by her side. Client is sitting on the edge of the bed and tolerating PT well.
[2017-06-04] MEDS ORDERED: BENA10TA2 PO (10:34)
[2017-06-04] MEDS ORDERED: ALBU1.25 NEB (10:34)
--- NOTE | 2017-06-04 11:24 | NUR ---
Caregiver noted by client's bedside.
[2017-06-04 11:44] VITALS: BP 143/45
--- NOTE | 2017-06-04 13:19 | NUR ---
Client's own supply of cranberry pills were picked up from pharmacy and given to the caregiver noted by client's bedside
--- NOTE | 2017-06-04 14:27 | NUR ---
Client is being discharged with discharge orders from Dr. Roman to [facility]. Client has caregiver by bedside. Flexi-seal removed, times 3 BMs. 850cc removed from Mejia catheter.
--- NOTE | 2017-06-04 15:44 | NUR ---
Client was picked up by two [facility] EMT's. Client was also accompanied by caregiver. GT flushed and central IV line also flushed. Client is in stable condition with no apparent signs and symptoms of pain, SOB, distress or discomfort.
== END 2017-06-04 15:45 | DRG 870 ==
LOC: ER 20:01 → CCU 23:30 → TELE 05-31 12:55 → MED 06-01 04:52
PROVIDERS: ADMIT Internal Medicine; ATTEND Internal Medicine
PROC: 5A1955Z Respiratory Ventilation, Greater than 96 Consecutive Hours (ICD-10-PCS; principal; 2017-05-23)
PROC: 0BH17EZ Insertion of Endotracheal Airway into Trachea, Via Natural or Artificial Opening (ICD-10-PCS; 2017-05-23)
PROC: 02HV33Z Insertion of Infusion Device into Superior Vena Cava, Percutaneous Approach (ICD-10-PCS; 2017-05-23)
PROC: B548ZZA Ultrasonography of Superior Vena Cava, Guidance (ICD-10-PCS; 2017-05-23)
DX: A41.9 Sepsis, unspecified organism (principal); J96.01 Acute respiratory failure with hypoxia; J69.0 Pneumonitis due to inhalation of food and vomit; R65.21 Severe sepsis with septic shock; E43 Unspecified severe protein-calorie malnutrition; G92 Toxic encephalopathy; J15.212 Pneumonia due to Methicillin resistant Staphylococcus aureus; R13.10 Dysphagia, unspecified; I50.33 Acute on chronic diastolic (congestive) heart failure; J44.1 Chronic obstructive pulmonary disease with (acute) exacerbation; N39.0 Urinary tract infection, site not specified; J98.11 Atelectasis; J44.0 Chronic obstructive pulmonary disease with (acute) lower respiratory infection; B95.2 Enterococcus as the cause of diseases classified elsewhere; B96.4 Proteus (mirabilis) (morganii) as the cause of diseases classified elsewhere; Z16.21 Resistance to vancomycin; Z68.22 Body mass index [BMI] 22.0-22.9, adult; Z93.1 Gastrostomy status; Z88.0 Allergy status to penicillin; Z88.2 Allergy status to sulfonamides; G89.4 Chronic pain syndrome; Z95.810 Presence of automatic (implantable) cardiac defibrillator; E66.9 Obesity, unspecified; E78.5 Hyperlipidemia, unspecified; D64.9 Anemia, unspecified; E03.9 Hypothyroidism, unspecified; E87.6 Hypokalemia; I11.0 Hypertensive heart disease with heart failure; I27.20 Pulmonary hypertension, unspecified; M06.9 Rheumatoid arthritis, unspecified; K21.9 Gastro-esophageal reflux disease without esophagitis; Z79.899 Other long term (current) drug therapy; Z90.710 Acquired absence of both cervix and uterus; Z87.01 Personal history of pneumonia (recurrent); I70.0 Atherosclerosis of aorta; I25.2 Old myocardial infarction; I25.10 Atherosclerotic heart disease of native coronary artery without angina pectoris; G62.9 Polyneuropathy, unspecified; R74.0 Nonspecific elevation of levels of transaminase and lactic acid dehydrogenase [LDH]
CPT/HCPCS: 36415; 36600; 70030-TC; 71010; 74000; 76700; 83550; 83605; 83735; 84100; 85018; 85025; 87040; 87070; 87077; 87086; 87400; 92526; 92610; 93005; 93307; 94002; 94003; 94664; 97110; 97530; A4663; J0360; J1650; J1940; J1956; J2060; J2185; J3370; J3475; J3480; J3490; J7030; J7040; J7050; J7060; Q9967